=== PATIENT | male | born 1950 | race Caucasian/White ===

== ENCOUNTER 2017-02-02 04:21 | Emergency (ER) | payer MEDICARE, BC, OTHER ==
[~2017-02-02] VITALS: Ht 177.8 cm; Wt 84.8 kg
[~2017-02-02 04:21] MED LIST: ASPI81TA85 PO; CARV25TA PO; CELL250C PO; FOLI1TAB2 PO; MAGN500T6 PO; MERO1INJ IV; MOME50SP; NITR100C2 PO; OMEP20CA3 PO; POTA50TAB PO; PRED5TA PO; PROG1CAP2 PO; SYNT125T PO
[2017-02-02 05:37] LABS: BASO % 0.2 % (0.0-1.0); EOS # 0.1 K/mm3 (0.0-0.50); LARGE UNSTAINED CELL # 0.1 K/mm3 (0.0-0.4); LARGE UNSTAINED CELL % 1.8 % (0.0-4.0); LYMPH # 0.9 K/mm3 (1.5-4.5); LYMPH % 12.3 % (24.0-44.0); MEAN CORPUSCULAR HEMOGLOBIN 29.4 pg (27.0-33.0); MEAN CORPUSCULAR HGB CONC 34.9 g/dl (32.0-36.5); MEAN CORPUSCULAR VOLUME 84.3 fl (80.0-96.0); MONO # 0.7 K/mm3 (0.0-0.8); MONO % 9.6 % (0.0-5.0); NEUTROPHILS # 5.5 K/mm3 (1.8-7.7); NEUTROPHILS % 75.1 % (36.0-66.0); PLATELET COUNT, AUTOMATED 109 k/mm3 (150-450); WHITE BLOOD COUNT 7.3 K/mm3 (4.0-10.0)
[2017-02-02 05:55] LABS: ANION GAP 9 MEQ/L (8-16); BLOOD UREA NITROGEN 23 MG/DL (7-18); CALCIUM LEVEL 8.6 MG/DL (8.8-10.2); CARBON DIOXIDE LEVEL 25 MEQ/L (21-32); CHLORIDE LEVEL 106 MEQ/L (98-107); CREATININE FOR GFR 1.13 MG/DL (0.70-1.30); GLOMERULAR FILTRATION RATE > 60.0 (>49); GLUCOSE, FASTING 160 MG/DL (80-110); POTASSIUM SERUM 3.8 MEQ/L (3.5-5.1); SODIUM LEVEL 140 MEQ/L (136-145)
[2017-02-02] MEDS ORDERED: TESS100C PO (06:03)
[2017-02-02] MEDS ORDERED: FLON1SPR (06:03)
[2017-02-02 06:12] VITALS: BP 138/72
[2017-02-02] MEDS ORDERED: BENZONATATE 100 MG CAP PO ONE (06:15)
== END 2017-02-02 06:13 | disposition home or self-care (01) ==
LOC: M ED 05:47
DX: J06.9 Acute upper respiratory infection, unspecified (principal)

== ENCOUNTER → 2017-02-04 | Outpatient (REF) | payer MEDICARE, BC, OTHER ==
[~2017-02-04] MED LIST changes: +FLON1SPR; +TESS100C PO
[2017-02-04 14:36] LABS: FREE T4 1.1 NG/DL (0.76-1.46)
== END ==
LOC: M LAB REF 12:56
PROVIDERS: ATTEND Internal Medicine Nephrology
DX: E78.2 Mixed hyperlipidemia (principal); E03.9 Hypothyroidism, unspecified; Z94.0 Kidney transplant status; Z48.22 Encounter for aftercare following kidney transplant; Z79.899 Other long term (current) drug therapy

== ENCOUNTER → 2017-02-18 | Outpatient (CLI) | payer MEDICARE, BC, OTHER ==
[~2017-02-18] MED LIST changes: +AMLO5TAB2 PO; +FINA5TAB2 PO; +VIAG100T; +ZOFR4TAB3 PO
== END ==
LOC: M SMT 10:29
PROVIDERS: ATTEND Urology
DX: Z12.5 Encounter for screening for malignant neoplasm of prostate (principal)
CPT/HCPCS: 36415; G0103; G0463

== ENCOUNTER 2017-03-12 18:26 | Emergency (ER) | payer MEDICARE, BC, OTHER ==
[~2017-03-12] VITALS: Ht 177.8 cm; Wt 83.9 kg
[~2017-03-12 18:26] MED LIST changes: -AMLO5TAB2 PO; -FINA5TAB2 PO; -VIAG100T; -ZOFR4TAB3 PO
[2017-03-12] MEDS ORDERED: FINA5TAB2 PO (18:40)
[2017-03-12] MEDS ORDERED: VIAG100T (18:40)
[2017-03-12] MEDS ORDERED: AMLO5TAB2 PO (18:40)
[2017-03-12] MEDS ORDERED: ONDANSETRON 4MG/2ML VIAL (J2405) IV ONE (19:30)
[2017-03-12] MEDS ORDERED: NS 1,000 ML IV ONE (19:30)
[2017-03-12 20:07] LABS: BASO % 0.2 % (0.0-1.0); EOS % 0.6 % (0.0-3.0); LARGE UNSTAINED CELL # 0.1 K/mm3 (0.0-0.4); LARGE UNSTAINED CELL % 1.6 % (0.0-4.0); LYMPH # 0.5 K/mm3 (1.5-4.5); LYMPH % 7.1 % (24.0-44.0); MEAN CORPUSCULAR HEMOGLOBIN 29.1 pg (27.0-33.0); MEAN CORPUSCULAR HGB CONC 34.7 g/dl (32.0-36.5); MEAN CORPUSCULAR VOLUME 83.8 fl (80.0-96.0); MONO # 0.6 K/mm3 (0.0-0.8); MONO % 10.7 % (0.0-5.0); NEUTROPHILS # 4.7 K/mm3 (1.8-7.7); NEUTROPHILS % 79.9 % (36.0-66.0); PLATELET COUNT, AUTOMATED 120 k/mm3 (150-450); WHITE BLOOD COUNT 5.9 K/mm3 (4.0-10.0)
[2017-03-12 20:31] LABS: ALBUMIN 3.8 GM/DL (3.2-5.2); ALBUMIN/GLOBULIN RATIO 1.36 (1.00-1.93); BILIRUBIN,DIRECT 0.3 MG/DL (0.0-0.2); BILIRUBIN,TOTAL 1.4 MG/DL (0.2-1.0); CALCIUM LEVEL 8.4 MG/DL (8.8-10.2); CREATININE FOR GFR 1.29 MG/DL (0.70-1.30); GLOMERULAR FILTRATION RATE 59.3 (>49); TOTAL PROTEIN 6.6 GM/DL (6.4-8.2)
[2017-03-12] MEDS ORDERED: ZOFR4TAB3 PO (20:55)
[2017-03-12 21:07] VITALS: BP 150/86
== END 2017-03-12 21:08 | disposition home or self-care (01) ==
LOC: M ED 19:37
DX: A08.4 Viral intestinal infection, unspecified (principal); E86.0 Dehydration; N40.0 Benign prostatic hyperplasia without lower urinary tract symptoms; I71.4 Abdominal aortic aneurysm, without rupture; I12.9 Hypertensive chronic kidney disease with stage 1 through stage 4 chronic kidney disease, or unspecified chronic kidney disease; Q44.6 Cystic disease of liver; Z94.0 Kidney transplant status; R11.2 Nausea with vomiting, unspecified; Z88.0 Allergy status to penicillin; Z88.1 Allergy status to other antibiotic agents; Z79.899 Other long term (current) drug therapy
CPT/HCPCS: 36415; 80048; 80076; 81001; 83605; 83690; 85025; 87040; 87086; 96374; 99283; J2405

== ENCOUNTER → 2017-04-05 | Outpatient (REF) | payer MEDICARE, OTHER ==
[~2017-04-05] MED LIST changes: +AMLO5TAB2 PO; +FINA5TAB2 PO; +VIAG100T; +ZOFR4TAB3 PO
== END ==
LOC: M LAB REF 13:12
PROVIDERS: ATTEND Internal Medicine Nephrology
DX: Z94.0 Kidney transplant status (principal)

== ENCOUNTER → 2017-04-19 | Outpatient (REF) | payer MEDICARE, OTHER | LOC: M LAB REF 12:58 | PROVIDERS: ATTEND Internal Medicine Nephrology | DX: N39.0 Urinary tract infection, site not specified (principal) ==

== ENCOUNTER → 2017-05-27 | Outpatient (REF) | payer MEDICARE, OTHER ==
[~2017-05-27] MED LIST changes: -FOLI1TAB2 PO; +FOLI1TAB4 PO; +GLIP1TAB49 PO
== END ==
LOC: M LAB REF 13:03
PROVIDERS: ATTEND Internal Medicine Nephrology
DX: Z94.0 Kidney transplant status (principal)

== ENCOUNTER 2017-06-10 10:52 | Outpatient (CLI) | payer MEDICARE, BC, OTHER ==
[~2017-06-10] VITALS: Ht 176.5 cm; Wt 83.0 kg
[2017-06-10] MEDS ORDERED: NS 1,000 ML IV ONE (11:00)
[2017-06-10] MEDS ORDERED: LIDOCAINE 2% INJ 100 MG/5 ML SDV (FOR ANES.) As Ordered ONE (12:10)
[2017-06-10] MEDS ORDERED: PROPOFOL 200 MG/20 ML VIAL As Ordered ONE (12:10)
--- NOTE | 2017-06-10 12:35 | ROOR ---
Patient Name: Inderjit Albright Procedure Date: 06/10/2017 12:11 PM Date of : 1950 Age: 67 Room: [facility] Gender: Male Note Status: Finalized Procedure: Total Colonoscopy to Cecum Indications: Screening for colorectal malignant neoplasm Providers: Donta Lopez MD Referring MD: Nathanael Lockhart MD Requesting Provider: Medicines: Monitored Anesthesia Care Complications: No immediate complications. Procedure: Pre-Anesthesia Assessment: - The heart rate, respiratory rate, oxygen saturations, blood pressure, adequacy of pulmonary ventilation, and response to care were monitored throughout the procedure. The Colonoscope was introduced through the anus and advanced to the cecum, identified by appendiceal orifice and ileocecal valve. The colonoscopy was performed without difficulty. The patient tolerated the procedure well. The quality of the bowel preparation was good. Findings: The perianal and digital rectal examinations were normal. Non-bleeding internal hemorrhoids were found during retroflexion. The hemorrhoids were small and Grade I (internal hemorrhoids that do not prolapse). Scattered small-mouthed diverticula were found in the recto-sigmoid colon, sigmoid colon and descending colon. The exam was otherwise without abnormality on direct and retroflexion views. Impression: - Non-bleeding internal hemorrhoids. - Diverticulosis in the recto-sigmoid colon, in the sigmoid colon and in the descending colon. - The examination was otherwise normal on direct and retroflexion views. - No specimens collected. - The exam was otherwise normal to the cecum. Recommendation: - Patient has a contact number available for emergencies. The signs and symptoms of potential delayed complications were discussed with the patient. Return to normal activities tomorrow. Written discharge instructions were provided to the patient. - Discharge patient to home. - Continue present medications. - Repeat colonoscopy in 10 years for screening purposes. - Return to referring physician. - The findings and recommendations were discussed with the patient's family. Donta Lopez MD Donta Lopez MD 06/10/2017 12:34:45 PM This report has been signed electronically. Number of Addenda: 0 Note Initiated On: 06/10/2017 12:11 PM Estimated Blood Loss: Estimated blood loss: none.
[2017-06-10 12:59] VITALS: BP 128/78
== END 2017-06-10 13:02 | disposition home or self-care (01) ==
LOC: M OPP 10:52
PROVIDERS: ATTEND Internal Medicine Gastroenterology
DX: Z12.11 Encounter for screening for malignant neoplasm of colon (principal); K64.0 First degree hemorrhoids; K57.30 Diverticulosis of large intestine without perforation or abscess without bleeding; I10 Essential (primary) hypertension; E11.9 Type 2 diabetes mellitus without complications; E03.9 Hypothyroidism, unspecified; D64.9 Anemia, unspecified; K21.9 Gastro-esophageal reflux disease without esophagitis; Q61.9 Cystic kidney disease, unspecified; Z79.899 Other long term (current) drug therapy; Z79.82 Long term (current) use of aspirin; Z88.0 Allergy status to penicillin; Z88.1 Allergy status to other antibiotic agents; Z90.5 Acquired absence of kidney

== ENCOUNTER → 2017-07-05 | Outpatient (REF) | payer MEDICARE, BC, OTHER ==
[2017-07-05 14:38] LABS: FREE T4 1.08 NG/DL (0.76-1.46)
== END ==
LOC: M LAB REF 12:54
PROVIDERS: ATTEND Internal Medicine Nephrology
DX: R50.9 Fever, unspecified (principal); E03.9 Hypothyroidism, unspecified; Z94.0 Kidney transplant status

== ENCOUNTER → 2017-07-15 | Outpatient (REF) | payer MEDICARE, BC, OTHER | LOC: M LAB REF 17:07 | PROVIDERS: ATTEND Internal Medicine Nephrology | DX: N39.0 Urinary tract infection, site not specified (principal) ==

== ENCOUNTER → 2017-08-05 | Outpatient (CLI) | payer MEDICARE, BC, OTHER ==
[2017-08-05 11:02] LABS: BASO % 0.3 % (0.0-1.0); EOS # 0.1 10^3/uL (0.0-0.50); EOS % 2.1 % (0.0-3.0); IMMATURE GRANULOCYTE % 0.3 % (0-0); LYMPH # 1.5 10^3/uL (1.5-4.5); LYMPH % 23.8 % (24.0-44.0); MEAN CORPUSCULAR HEMOGLOBIN 28.6 pg (27.0-33.0); MEAN CORPUSCULAR HGB CONC 33.5 g/dl (32.0-36.5); MEAN CORPUSCULAR VOLUME 85.3 fl (80.0-96.0); MONO # 0.5 10^3/uL (0.0-0.8); MONO % 8.6 % (0.0-5.0); NEUTROPHILS # 4.1 10^3/uL (1.8-7.7); NEUTROPHILS % 64.9 % (36.0-66.0); PLATELET COUNT, AUTOMATED 144 10^3/uL (150-450); WHITE BLOOD COUNT 6.3 10^3/uL (4.0-10.0)
[2017-08-05 11:08] LABS: ALBUMIN 3.8 GM/DL (3.2-5.2); ANION GAP 7 MEQ/L (8-16); BLOOD UREA NITROGEN 26 MG/DL (7-18); CALCIUM LEVEL 8.7 MG/DL (8.8-10.2); CARBON DIOXIDE LEVEL 29 MEQ/L (21-32); CHLORIDE LEVEL 105 MEQ/L (98-107); CREATININE FOR GFR 1.15 MG/DL (0.70-1.30); GLOMERULAR FILTRATION RATE > 60.0 (>49); GLUCOSE, FASTING 115 MG/DL (80-110); PHOSPHORUS LEVEL 2.3 MG/DL (2.5-4.9); POTASSIUM SERUM 3.9 MEQ/L (3.5-5.1); SODIUM LEVEL 141 MEQ/L (136-145)
[2017-08-05 11:12] LABS: ADD MANUAL DIFFER NO; DIFF SLIDE NUMBER 160
== END ==
LOC: M LAB 09:50
PROVIDERS: ATTEND Internal Medicine Nephrology
DX: Z94.0 Kidney transplant status (principal)

== ENCOUNTER → 2018-02-07 | Outpatient (CLI) | payer MEDICARE, BC, OTHER ==
[2018-02-07 14:51] LABS: PROSTATIC SPECIFIC AG MONITOR 1.84 NG/ML (< 4.0)
== END ==
LOC: M LAB 14:05
DX: N40.0 Benign prostatic hyperplasia without lower urinary tract symptoms (principal); R97.20 Elevated prostate specific antigen [PSA]
CPT/HCPCS: 84153

== ENCOUNTER → 2018-02-14 | Outpatient (REF) | payer MEDICARE, OTHER ==
[2018-02-14 14:26] LABS: CHOLESTEROL LEVEL 176 MG/DL (<200); CHOLESTEROL RISK RATIO 4.631 (<5); FREE T4 1.13 NG/DL (0.76-1.46); HDL CHOLESTEROL 38 MG/DL (>40); LDL CHOLESTEROL 95.6 MG/DL (<100); NON-HDL-C 138 MG/DL; TRIGLYCERIDES LEVEL 212 MG/DL (<150)
[2018-02-16 10:08] LABS: FK 506 (TACROLIMUS) LABCORP 5.6 ng/mL (2.0-20.0)
== END ==
LOC: M LAB REF 13:31
DX: Z94.0 Kidney transplant status (principal); Z48.22 Encounter for aftercare following kidney transplant; E03.9 Hypothyroidism, unspecified; E78.2 Mixed hyperlipidemia
CPT/HCPCS: 84443

== ENCOUNTER → 2018-03-18 | Outpatient (REF) | payer MEDICARE, OTHER ==
[2018-03-20 08:11] LABS: FK 506 (TACROLIMUS) LABCORP 3.1 ng/mL (2.0-20.0)
== END ==
LOC: M LAB REF 13:24
DX: Z94.0 Kidney transplant status (principal)
CPT/HCPCS: 80197

== ENCOUNTER 2018-04-02 20:19 | Emergency (ER) | payer MEDICARE, OTHER ==
[2018-04-02] MEDS: ONDANSETRON 4MG/2ML VIAL (J2405) IV (20:45)
[2018-04-02] MEDS: NS 1,000 ML IV (20:45)
[2018-04-02] MEDS: MORPHINE 4 MG/ML 1ML VIAL/SYRINGE (J2270) IV ×2 (20:45→22:32)
[2018-04-02 21:09] LABS: HEMATOCRIT 43.1 % (42.0-52.0); HEMOGLOBIN 15.1 g/dl (13.5-17.5); MEAN CORPUSCULAR HEMOGLOBIN 28.7 pg (27.0-33.0); MEAN CORPUSCULAR VOLUME 81.8 fl (80.0-96.0); PLATELET COUNT, AUTOMATED 144 10^3/uL (150-450); RED BLOOD COUNT 5.27 10^6/uL (4.30-6.10); RED CELL DISTRIBUTION WIDTH 13.7 % (11.5-14.5); WHITE BLOOD COUNT 8.7 10^3/uL (4.0-10.0)
[2018-04-02 21:26] LABS: APPEARANCE, URINE CLEAR (CLEAR); BACTERIA, URINE AUTO NEGATIVE (NEGATIVE); BILIRUBIN, URINE AUTO NEGATIVE (NEGATIVE); BLOOD, URINE BLOOD NEGATIVE (NEGATIVE); COLOR, URINE STRAW (YELLOW); GLUCOSE, URINE (UA) AUTO 3+ mg/dL (NEGATIVE); INR 0.97; KETONE, URINE AUTO NEGATIVE (NEGATIVE); LEUKOCYTE ESTERASE, URINE AUTO NEGATIVE (NEGATIVE); NITRITE, URINE AUTO NEGATIVE (NEGATIVE); PROTEIN, URINE AUTO NEGATIVE (NEGATIVE); RBC, URINE AUTO 0 /HPF (0-3); SPECIFIC GRAVITY URINE AUTO 1.007 (1.002-1.035); SQUAMOUS EPITHELIAL CELL UR AU 0 /HPF (0-6); UROBILINOGEN, URINE AUTO 0.2 mg/dL (0.0-2.0); WBC, URINE AUTO 0 /HPF (0-3)
[2018-04-02 21:29] LABS: ANION GAP 7 MEQ/L (8-16); BLOOD UREA NITROGEN 26 MG/DL (7-18); CALCIUM LEVEL 8.9 MG/DL (8.8-10.2); CARBON DIOXIDE LEVEL 24 MEQ/L (21-32); CHLORIDE LEVEL 106 MEQ/L (98-107); CREATININE FOR GFR 1.17 MG/DL (0.70-1.30); GLOMERULAR FILTRATION RATE > 60.0 (>49); GLUCOSE, FASTING 191 MG/DL (70-100); POTASSIUM SERUM 3.8 MEQ/L (3.5-5.1); SODIUM LEVEL 137 MEQ/L (136-145)
== END 2018-04-02 23:10 | disposition short-term general hospital (02) ==
LOC: M ED 20:19
DX: S32.391A Other fracture of right ilium, initial encounter for closed fracture (principal); V18.0XXA Pedal cycle driver injured in noncollision transport accident in nontraffic accident, initial encounter; Y92.093 Driveway of other non-institutional residence as the place of occurrence of the external cause; I67.1 Cerebral aneurysm, nonruptured; I10 Essential (primary) hypertension; Z88.1 Allergy status to other antibiotic agents; Z88.0 Allergy status to penicillin; Z79.899 Other long term (current) drug therapy; Z79.82 Long term (current) use of aspirin
CPT/HCPCS: J2270

== ENCOUNTER → 2018-04-15 | Outpatient (REF) ==
[2018-04-15 11:27] LABS: HEMATOCRIT 38.5 % (42.0-52.0); HEMOGLOBIN 12.7 g/dl (13.5-17.5); MEAN CORPUSCULAR HEMOGLOBIN 28.2 pg (27.0-33.0); MEAN CORPUSCULAR VOLUME 85.6 fl (80.0-96.0); PLATELET COUNT, AUTOMATED 222 10^3/uL (150-450); RED CELL DISTRIBUTION WIDTH 14.6 % (11.5-14.5); WHITE BLOOD COUNT 7.4 10^3/uL (4.0-10.0)
[2018-04-15 11:50] LABS: BLOOD UREA NITROGEN 25 MG/DL (7-18); CREATININE FOR GFR 1.26 MG/DL (0.70-1.30); GLUCOSE, FASTING 195 MG/DL (70-100)
[2018-04-15 11:51] LABS: ANION GAP 12 MEQ/L (8-16); CALCIUM LEVEL 8.9 MG/DL (8.8-10.2); CARBON DIOXIDE LEVEL 29 MEQ/L (21-32); CHLORIDE LEVEL 99 MEQ/L (98-107); GLOMERULAR FILTRATION RATE > 60.0 (>49); MAGNESIUM LEVEL 1.7 MG/DL (1.8-2.4); POTASSIUM SERUM 3.8 MEQ/L (3.5-5.1); SODIUM LEVEL 140 MEQ/L (136-145)
== END ==
DX: Z94.0 Kidney transplant status (principal)

== ENCOUNTER → 2018-04-22 | Outpatient (REF) ==
[2018-04-22 12:02] LABS: HEMATOCRIT 38.2 % (42.0-52.0); HEMOGLOBIN 12.8 g/dl (13.5-17.5); MEAN CORPUSCULAR HEMOGLOBIN 28.4 pg (27.0-33.0); MEAN CORPUSCULAR HGB CONC 33.5 g/dl (32.0-36.5); MEAN CORPUSCULAR VOLUME 84.7 fl (80.0-96.0); PLATELET COUNT, AUTOMATED 196 10^3/uL (150-450); RED BLOOD COUNT 4.51 10^6/uL (4.30-6.10); RED CELL DISTRIBUTION WIDTH 14.6 % (11.5-14.5); WHITE BLOOD COUNT 6.4 10^3/uL (4.0-10.0)
[2018-04-22 12:14] LABS: ANION GAP 9 MEQ/L (8-16); BLOOD UREA NITROGEN 26 MG/DL (7-18); CALCIUM LEVEL 8.3 MG/DL (8.8-10.2); CARBON DIOXIDE LEVEL 27 MEQ/L (21-32); CHLORIDE LEVEL 105 MEQ/L (98-107); CREATININE FOR GFR 1.03 MG/DL (0.70-1.30); GLOMERULAR FILTRATION RATE > 60.0 (>49); GLUCOSE, FASTING 113 MG/DL (70-100); MAGNESIUM LEVEL 2.1 MG/DL (1.8-2.4); SODIUM LEVEL 141 MEQ/L (136-145)
== END ==
DX: Z94.0 Kidney transplant status (principal)

== ENCOUNTER → 2018-04-23 | Outpatient (REF) | payer MEDICARE, OTHER ==
[2018-04-23 18:56] LABS: APPEARANCE, URINE HAZY (CLEAR); BACTERIA, URINE AUTO 1+ (NEGATIVE); BILIRUBIN, URINE AUTO NEGATIVE (NEGATIVE); BLOOD, URINE BLOOD 1+ (NEGATIVE); COLOR, URINE YELLOW (YELLOW); GLUCOSE, URINE (UA) AUTO NEGATIVE (NEGATIVE); KETONE, URINE AUTO NEGATIVE (NEGATIVE); LEUKOCYTE ESTERASE, URINE AUTO 3+ (NEGATIVE); NITRITE, URINE AUTO NEGATIVE (NEGATIVE); PROTEIN, URINE AUTO NEGATIVE (NEGATIVE); RBC, URINE AUTO 13 /HPF (0-3); SQUAMOUS EPITHELIAL CELL UR AU 0 /HPF (0-6); UROBILINOGEN, URINE AUTO 0.2 mg/dL (0.0-2.0); WBC, URINE AUTO 90 /HPF (0-3)
== END ==
LOC: M LAB REF 17:13
DX: N39.0 Urinary tract infection, site not specified (principal)
CPT/HCPCS: 81001

== ENCOUNTER → 2018-05-22 | Outpatient (REF) | payer MEDICARE, OTHER ==
[2018-05-22 14:44] LABS: CHOLESTEROL LEVEL 191 MG/DL (<200); CHOLESTEROL RISK RATIO 4.897 (<5); HDL CHOLESTEROL 39 MG/DL (>40); LDL CHOLESTEROL 91.6 MG/DL (<100); NON-HDL-C 152 MG/DL; TRIGLYCERIDES LEVEL 302 MG/DL (<150)
[2018-05-27 00:08] LABS: FK 506 (TACROLIMUS) LABCORP 6.5 ng/mL (2.0-20.0)
== END ==
LOC: M LAB REF 13:32
DX: E78.2 Mixed hyperlipidemia (principal); Z94.0 Kidney transplant status; Z48.22 Encounter for aftercare following kidney transplant; E03.9 Hypothyroidism, unspecified
CPT/HCPCS: 84443

== ENCOUNTER → 2018-06-23 | Outpatient (REF) | payer MEDICARE, OTHER ==
[2018-06-25 14:18] LABS: FK 506 (TACROLIMUS) LABCORP 9.3 ng/mL (2.0-20.0)
== END ==
LOC: M LAB REF 13:42
DX: Z94.0 Kidney transplant status (principal)
CPT/HCPCS: 80197

== ENCOUNTER → 2018-07-24 | Outpatient (REF) | payer MEDICARE, OTHER ==
[2018-07-26 00:06] LABS: FK 506 (TACROLIMUS) LABCORP 4.8 ng/mL (2.0-20.0)
== END ==
LOC: M LAB REF 13:50
DX: Z94.0 Kidney transplant status (principal)
CPT/HCPCS: 80197

== ENCOUNTER → 2018-09-10 | Outpatient (REF) | payer MEDICARE, OTHER ==
[2018-09-12 14:13] LABS: FK 506 (TACROLIMUS) LABCORP 8.7 ng/mL (2.0-20.0)
== END ==
LOC: M LAB REF 13:05
DX: Z94.0 Kidney transplant status (principal)
CPT/HCPCS: 80197

== ENCOUNTER → 2019-02-19 | Outpatient (REF) | payer MEDICARE, OTHER ==
[~2019-02-19] MED LIST changes: -AMLO5TAB2 PO; +AMLO5TAB6 PO; +FOLI1TAB11 PO; -FOLI1TAB4 PO; -GLIP1TAB49 PO; +GLIP5TAB20 PO; +ZITHTAB PO; +ZOFR4TAB14 PO; -ZOFR4TAB3 PO
== END ==
LOC: M LAB REF 13:23
PROVIDERS: ATTEND Internal Medicine Nephrology
DX: Z94.0 Kidney transplant status (principal)

== ENCOUNTER → 2019-03-06 | Outpatient (CLI) | payer MEDICARE, OTHER | LOC: M SMT 13:44 | PROVIDERS: ATTEND Nurse Practitioner Women's Health | DX: Z12.5 Encounter for screening for malignant neoplasm of prostate (principal) | CPT/HCPCS: 36415; G0103 ==

== ENCOUNTER → 2019-03-09 | Outpatient (REF) | payer MEDICARE, OTHER | LOC: M SMT 18:11 | PROVIDERS: ATTEND Urology | DX: N40.0 Benign prostatic hyperplasia without lower urinary tract symptoms (principal) | CPT/HCPCS: 87086; G0463 ==

== ENCOUNTER → 2019-04-16 | Outpatient (REF) | payer MEDICARE, OTHER ==
[2019-04-16 13:41] LABS: CHOLESTEROL RISK RATIO 4.795 (<5); FREE T4 1.2 NG/DL (0.76-1.46); THYROID STIMULATING HORMONE 0.789 uIU/ML (0.358-3.740)
== END ==
LOC: M LAB REF 13:05
PROVIDERS: ATTEND Internal Medicine Nephrology
DX: E03.9 Hypothyroidism, unspecified (principal); E78.2 Mixed hyperlipidemia; Z94.0 Kidney transplant status; Z48.22 Encounter for aftercare following kidney transplant

== ENCOUNTER → 2019-04-16 | Outpatient (CLI) | payer MEDICARE, OTHER ==
[2019-04-17 14:56] LABS: PSA % FREE 21.2 % (.); PSA FREE 1.23 ng/mL; PSA TOTAL 5.8 ng/mL (0.0-4.0)
== END ==
LOC: M SMT 10:53
PROVIDERS: ATTEND Urology
DX: R97.20 Elevated prostate specific antigen [PSA] (principal); E03.9 Hypothyroidism, unspecified; E78.2 Mixed hyperlipidemia; Z94.0 Kidney transplant status; Z48.22 Encounter for aftercare following kidney transplant

== ENCOUNTER → 2019-05-18 | Outpatient (REF) | payer MEDICARE, OTHER ==
[~2019-05-18] MED LIST changes: -OMEP20CA3 PO; +OMEP20CA4 PO
== END ==
LOC: M LAB REF 13:13
PROVIDERS: ATTEND Internal Medicine Nephrology
DX: Z94.0 Kidney transplant status (principal)

== ENCOUNTER → 2019-06-02 | Outpatient (CLI) | payer MEDICARE, BC, OTHER ==
--- NOTE | 2019-06-02 14:28 | REP ---
TRANSRECTAL PROSTATE ULTRASOUND WITH ULTRASOUND GUIDANCE FOR PROSTATE BIOPSY: Real-time sonographic evaluation of the prostate performed utilizing transrectal probe. The size of the gland is 4.4 x 3.4 x 5.1 cm for a total volume of 39.7 mL. Echotexture is heterogeneous with scattered cysts in calcifications. Seminal vesicles are prominent in size. Ultrasound guidance was provided for Dr. Nolasco who performed ultrasound guided biopsy of the prostate. Electronically Signed by Kahlil Villa MD 06/03/2019 10:38 A
== END ==
LOC: M SMT PRO 10:38
PROVIDERS: ATTEND Urology
DX: C61 Malignant neoplasm of prostate (principal)
CPT/HCPCS: 55700; 76872; 76942; G0416

== ENCOUNTER → 2019-07-02 | Outpatient (CLI) | payer MEDICARE, BC, OTHER ==
[~2019-07-02] MED LIST changes: +METF500T13 PO
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
== END ==
LOC: M ONCR 08:49
PROVIDERS: ATTEND Radiology Radiation Oncology
DX: C61 Malignant neoplasm of prostate (principal)

== ENCOUNTER → 2019-07-14 | Outpatient (CLI) | payer MEDICARE, BC, OTHER ==
[~2019-07-14] MED LIST changes: +OMEP1CAP73 PO; -OMEP20CA4 PO
--- NOTE | 2019-07-14 18:46 | REP ---
TRANSRECTAL ULTRASOUND GUIDANCE FOR FIDUCIARY MARKER PLACEMENT: Transrectal ultrasound guidance was provided for Dr. Nolasco who performed Fiduciary marker placement. Three fiduciary markers are placed, 1 at the right base, 1 at the left base and 1 at the midline at the apex. Electronically Signed by Kahlil Villa MD 07/16/2019 04:33 P
== END ==
LOC: M SMT 08:11
PROVIDERS: ATTEND Urology
DX: C61 Malignant neoplasm of prostate (principal)
CPT/HCPCS: 55876; 76872; 76942; 96402; J9217

== ENCOUNTER → 2019-08-27 | Outpatient (RCR) | payer MEDICARE, BC, OTHER ==
--- NOTE | 2019-07-29 06:06 | RADONC ---
RADIATION ONCOLOGY SIMULATION NOTE DATE: 07/28/2019 CHART #: [id number] Mr. Albright was taken to the CT scan for CT simulation of his prostate field. CT was accomplished without difficulty or discomfort. Radiation treatment planning is underway and radiation treatments will begin subsequently. An immobilization device was created. It was created without difficulty or discomfort. It will be used throughout the course of treatment. I was physically present throughout the course of CT simulation.
--- NOTE | 2019-08-04 12:06 | RADONC ---
RADIATION ONCOLOGY PROGRESS NOTE DATE: 08/03/2019 CHART NUMBER: [id number] PROGRESS NOTE: Mr. Albright underwent his first fraction of radiation today for 180 cGy to his prostate. It was tolerated without difficulty or discomfort. REVIEW OF SYSTEMS: The patient's review of systems is noncontributory. Denies nausea, vomiting, fevers, chills, night sweats, diplopia, headaches, anxiety or depression, anorexia, weight loss, visual disturbances, chest pain, urinary or bowel difficulties, bone pain, or neurological problems. PHYSICAL EXAMINATION: Clearly the patient's physical exam showed no evidence of radiation change present since this was his first fraction of treatment. The remainder of his physical exam remained unchanged as well. Mr. Albright tolerated his first fraction quite well and radiation will continue as scheduled.
--- NOTE | 2019-08-10 15:47 | RADONC ---
RADIATION ONCOLOGY PROGRESS NOTE DATE: 08/10/2019 CHART NUMBER: [id number] PROGRESS NOTE: Mr. Albright is presently at a dose of 1080 cGy to his prostate and is tolerating treatments quite well at this point with no complaints related to his radiation therapy. He is having no urinary or bowel difficulties and no bone pain. REVIEW OF SYSTEMS: The patient's review of systems is noncontributory. Denies nausea, vomiting, fevers, chills, night sweats, diplopia, headaches, anxiety or depression, anorexia, weight loss, visual disturbances, chest pain, urinary or bowel difficulties, bone pain, or neurological problems. PHYSICAL EXAMINATION: The patient's skin is in good condition with no evidence of radiation change present. There is no moist or dry desquamation. The remainder of his physical exam remains unchanged. Mr. Albright is tolerating treatments quite well and radiation will continue as scheduled.
--- NOTE | 2019-08-18 09:17 | RADONC ---
RADIATION ONCOLOGY PROGRESS NOTE DATE: 08/17/2019 CHART NUMBER: [id number] Mr. Albright with a diagnosis of prostate cancer ([id number]), is currently receiving local regional radiotherapy. His current dose is 1980 cGy of an anticipated 7920 cGy. He is tolerating his radiotherapy reasonably well and denies any significant problems related to his disease or to his treatment. REVIEW OF SYSTEMS: He specifically denies any nausea, vomiting, coughing, sputum production or hemoptysis, dysuria, hematuria or blood per rectum. His energy level is such that he is able to maintain most day-to-day activities without any alteration of his lifestyle. Skin irritation is denied. PHYSICAL EXAMINATION: Skin within the irradiated volume shows neither erythema nor desquamation. Lymphatics: No palpable peripheral lymphadenopathy appreciated. Lungs are clear. Abdomen: Negative. IMPRESSION: Tolerating therapy well. PLAN: Treatments to continue. MTDD
--- NOTE | 2019-08-25 07:14 | RADONC ---
RADIATION ONCOLOGY PROGRESS NOTE DATE: 08/24/2019 CHART #: [id number] Mr. Albright is presently at a dose of 2880 cGy to his prostate and is tolerating treatments quite well at this point with no significant difficulties related to his radiation therapy. He continues to use a urinary catheter without much discomfort. REVIEW OF SYSTEMS: The patient's review of systems is positive for continued use of his urinary catheter but is otherwise noncontributory. Denies nausea, vomiting, fevers, chills, night sweats, diplopia, headaches, anxiety or depression, anorexia, weight loss, visual disturbances, chest pain, urinary or bowel difficulties, bone pain, or neurological problems. PHYSICAL EXAMINATION: The patient's skin is in good condition with no evidence of moist or dry desquamation. The remainder of his physical exam remains unchanged. Mr. Albright is tolerating treatments quite well and radiation will continue as scheduled. MTDD
[~2019-08-27] MED LIST changes: -OMEP1CAP73 PO; +OMEP20CA4 PO
== END ==
LOC: M ONCR 07-28 10:17
PROVIDERS: ATTEND Radiology Radiation Oncology
DX: C61 Malignant neoplasm of prostate (principal)

== ENCOUNTER → 2019-09-01 | Outpatient (REF) | payer MEDICARE, OTHER | LOC: M LAB REF 13:36 | PROVIDERS: ATTEND Internal Medicine Nephrology | DX: Z94.0 Kidney transplant status (principal) ==

== ENCOUNTER 2019-09-23 14:15 | Outpatient (RCR) | payer MEDICARE, BC, OTHER ==
--- NOTE | 2019-08-31 15:36 | RADONC ---
RADIATION ONCOLOGY PROGRESS NOTE DATE: 08/31/2019 CLINICAL HISTORY [id number] PROGRESS NOTE: Mr. Albright with a diagnosis of adenocarcinoma of the prostate is currently receiving local regional radiotherapy and he has achieved a dose of 3780 cGy thus far of a proposed 7920 cGy. He is tolerating his radiotherapy reasonably well although he has to self-catheterize approximately 10 times per day secondary to urinary obstruction which is presumably secondary to an enlarged prostate. He is tender from the self-catheterizations but effectively eliminating most of the urine from his bladder. His energy level is such that he is able to maintain many day-to-day activities without any significant alteration of his lifestyle. He has no irritation of his skin. The remainder of the review of systems is negative. Examination findings: The skin within the irradiated volume shows neither erythema nor desquamation. Lymphatics no palpable peripheral lymphadenopathy is appreciated. Lungs are clear. Heart regular without murmurs. Abdomen without evidence of hepatomegaly, masses or deep abdominal tenderness. Extremities without cyanosis, clubbing or edema. The remainder of the examination is unchanged. IMPRESSION: Tolerating therapy reasonably well but continues with daily self-catheterizations multiple times. PLAN: Treatments to continue.
--- NOTE | 2019-09-07 16:14 | RADONC ---
RADIATION ONCOLOGY PROGRESS NOTE DATE: 09/07/2019 CHART NUMBER: [id number] PROGRESS NOTE: Mr. Albright is presently at a dose of 4680 cGy to his prostate and seminal vesicles and overall is tolerating his treatments quite well with no significant difficulties related to his radiation therapy. He reports that he continues to catheterize himself as he has done for the past 14 years without difficulty or too much discomfort. He has no bleeding or other problems during these catheterizations. REVIEW OF SYSTEMS: The patient's review of systems is noncontributory. Denies nausea, vomiting, fevers, chills, night sweats, diplopia, headaches, anxiety or depression, anorexia, weight loss, visual disturbances, chest pain, urinary or bowel difficulties, bone pain, or neurological problems. PHYSICAL EXAMINATION: The patient's skin is in good condition with no evidence of moist or dry desquamation. The remainder of his physical exam remains unchanged. Mr. Albright is tolerating treatments quite well and radiation will continue as scheduled.
--- NOTE | 2019-09-15 11:23 | RADONC ---
RADIATION ONCOLOGY PROGRESS NOTE: DATE: 09/14/2019 CHART NUMBER: [id number] Mr. Albright is presently at a dose of 5580 cGy to his prostate bed and is tolerating treatments quite well with no difficulties related to his radiation therapy. He continues to require catheterizations which is unchanged. REVIEW OF SYSTEMS: The patient's review of systems is positive for some urinary catheterization but is otherwise noncontributory. He denies nausea, vomiting, fevers, chills, night sweats, diplopia, headaches, anxiety or depression, anorexia, weight loss, visual disturbances, chest pain, urinary or bowel difficulties, bone pain, or neurological problems. PHYSICAL EXAMINATION: The patient's skin is in good condition with no evidence of moist or dry desquamation. The remainder of his physical exam remains unchanged. Mr. Albright is tolerating treatments quite well and radiation will continue as scheduled.
--- NOTE | 2019-09-23 08:53 | RADONC ---
RADIATION ONCOLOGY PROGRESS NOTE DATE: 09/21/2019 CHART #: [id number] Mr. Albright is presently at a dose of 6480 cGy to his prostate and is tolerating treatments quite well at this point with no complaints related to his radiation treatments. The patient presents today reporting that he is doing quite well with no complaints at this time related to his radiation therapy or disease. He has no urinary or bowel difficulties and no bone pain. REVIEW OF SYSTEMS: The patient's review of systems is noncontributory. Denies nausea, vomiting, fevers, chills, night sweats, diplopia, headaches, anxiety or depression, anorexia, weight loss, visual disturbances, chest pain, urinary or bowel difficulties, bone pain, or neurological problems. PHYSICAL EXAMINATION: The patient's skin is in good condition with no evidence of radiation change present. There is no moist or dry desquamation. The remainder of his physical exam remains unchanged. Mr. Albright is tolerating treatments quite well and radiation will continue as scheduled.
== END 2019-09-26 ==
LOC: M ONCR 14:15
PROVIDERS: ATTEND Radiology Radiation Oncology
DX: C61 Malignant neoplasm of prostate (principal)

== ENCOUNTER → 2019-10-01 | Outpatient (REF) | payer MEDICARE, OTHER ==
[~2019-10-01] MED LIST changes: +OMEP-172 PO; -OMEP20CA4 PO
== END ==
LOC: M LAB REF 13:49
PROVIDERS: ATTEND Internal Medicine Nephrology
DX: Z94.0 Kidney transplant status (principal)

== ENCOUNTER 2019-10-05 08:31 | Outpatient (RCR) | payer MEDICARE, BC, OTHER ==
--- NOTE | 2019-09-29 15:57 | RADONC ---
RADIATION ONCOLOGY TREATMENT NOTE DATE OF SERVICE: 09/29/2019 CHART NUMBER: [id number] Mr. Albright is a 69-year-old gentleman, who carries a diagnosis of prostate CA. So far, he has received dose of 6400 cGy to his prostate. He has no problem. He has a catheter. He is urinating 2-4 times a night. He has no bowel problems. Otherwise, he tolerates treatment well and treatment will continue as planned. MTDD
--- NOTE | 2019-10-05 13:17 | RADONC ---
RADIATION ONCOLOGY TREATMENT SUMMARY DATE OF SERVICE: 10/05/2019 CHART NUMBER: [id number]. DIAGNOSIS: Prostate cancer. STAGE: I, [id number]. ECOG PERFORMANCE STATUS: 0. TREATMENT SUMMARY: Mr. Albright is a very pleasant 69-year-old white male with the diagnosis what appears to be a stage I, [id number] moderate to poorly differentiated Brad score 7 (3-4) adenocarcinoma of the prostate who presented to us for consideration of definitive external beam radiation therapy with IMRT/IGRT. We treated the patient to his prostate for a total dose of 7920 cGy delivered in 44 fractions of 180 cGy each over 60 elapsed days from 08/03/2019 through 10/05/2019. The patient's prostate was treated on the linear accelerator utilizing a 6 MV photon beam via IMRT/IGRT. We initially treated the prostate and seminal vesicles to a dose of 5400 cGy and subsequently coned down to the prostate itself for an additional 2520 cGy, once again bringing it to a total dose of 7920 cGy. Mr. Albright tolerated his treatments quite well and continue to catheterize himself throughout the course of treatment. He had been catheterizing himself for many years, and this is unrelated to his radiation therapy. He had no significant complaints related to his RT treatments. I have scheduled the patient to see me when he returns from [place] in January. He is leaving for [place] at this point. He has been instructed to contact me if I could be of any assistance in the meantime. The patient has our office number, as well as cell phone number. cc: MD Skylar Miller NP
== END 2019-10-27 ==
LOC: M ONCR 08:31
PROVIDERS: ATTEND Radiology Radiation Oncology
DX: C61 Malignant neoplasm of prostate (principal)

== ENCOUNTER → 2020-02-15 | Outpatient (CLI) | payer MEDICARE, BC, OTHER ==
[~2020-02-15] MED LIST changes: -MERO1INJ IV; +MERO1VIA3 IV; -OMEP-172 PO; +OMEP1CAP73 PO; +PROG1CAP11 PO; -PROG1CAP2 PO
== END ==
LOC: M ONCR 09:01
PROVIDERS: ATTEND Radiology Radiation Oncology
DX: C61 Malignant neoplasm of prostate (principal)

== ENCOUNTER → 2020-02-18 | Outpatient (REF) | payer MEDICARE, OTHER | LOC: M LAB REF 16:31 | PROVIDERS: ATTEND Internal Medicine Nephrology | DX: Z94.0 Kidney transplant status (principal) ==

== ENCOUNTER → 2020-03-10 | Outpatient (REF) | payer MEDICARE, OTHER | LOC: M SFHCCLAY 14:01 | PROVIDERS: ATTEND Urology | DX: C61 Malignant neoplasm of prostate (principal) ==

== ENCOUNTER → 2020-03-23 | Outpatient (REF) | payer MEDICARE, OTHER | LOC: M LAB REF 16:43 | PROVIDERS: ATTEND Internal Medicine Nephrology | DX: Z94.0 Kidney transplant status (principal) ==

== ENCOUNTER → 2020-04-25 | Outpatient (REF) | payer MEDICARE, OTHER | LOC: M LAB REF 16:39 | PROVIDERS: ATTEND Internal Medicine Nephrology | DX: Z94.0 Kidney transplant status (principal) ==

== ENCOUNTER → 2020-06-17 | Outpatient (REF) | payer MEDICARE, OTHER ==
[~2020-06-17] MED LIST changes: +AMLO1TAB24 PO; -AMLO5TAB6 PO; -ASPI81TA85 PO; +ASPI81TA86 PO
== END ==
LOC: M LAB REF 17:56
PROVIDERS: ATTEND Internal Medicine Nephrology
DX: Z94.0 Kidney transplant status (principal)

== ENCOUNTER → 2020-07-19 | Outpatient (REF) | payer MEDICARE, OTHER | LOC: M LAB REF 17:10 | PROVIDERS: ATTEND Internal Medicine Nephrology | DX: Z94.0 Kidney transplant status (principal) ==

== ENCOUNTER → 2020-08-23 | Outpatient (REF) | payer MEDICARE, OTHER | LOC: M LAB REF 16:52 | PROVIDERS: ATTEND Internal Medicine Nephrology | DX: Z94.0 Kidney transplant status (principal) ==

== ENCOUNTER → 2020-09-08 | Outpatient (REF) | payer MEDICARE, OTHER | LOC: M PLALAB 09:49 | PROVIDERS: ATTEND Urology | DX: C61 Malignant neoplasm of prostate (principal) | CPT/HCPCS: 36415; 84153; G0463 ==

== ENCOUNTER → 2020-10-04 | Outpatient (REF) | payer MEDICARE, OTHER | LOC: M LAB REF 17:02 | PROVIDERS: ATTEND Internal Medicine Nephrology | DX: Z94.0 Kidney transplant status (principal) ==

== ENCOUNTER 2020-11-05 15:01 | Emergency (ER) | payer MEDICARE, OTHER ==
[~2020-11-05] VITALS: Ht 177.8 cm; Wt 88.6 kg
[2020-11-05] MEDS ORDERED: PIOG1TAB36 PO (15:16)
[2020-11-05] MEDS ORDERED: METF10004 PO (15:16)
[2020-11-05] MEDS ORDERED: GLIP10TA PO (15:16)
[2020-11-05 17:55] LABS: BASO % 0.2 % (0.0-1.0); EOS % 0.3 % (0.0-3.0); HEMATOCRIT 41.3 % (42.0-52.0); HEMOGLOBIN 13.4 g/dl (13.5-17.5); LYMPH # 0.7 10^3/uL (1.5-5.0); LYMPH % 11.9 % (24.0-44.0); MEAN CORPUSCULAR HEMOGLOBIN 27.4 pg (27.0-33.0); MEAN CORPUSCULAR HGB CONC 32.4 g/dl (32.0-36.5); MEAN CORPUSCULAR VOLUME 84.5 fl (80.0-96.0); MONO # 0.3 10^3/uL (0.0-0.8); MONO % 5.1 % (0.0-5.0); NEUTROPHILS % 82.3 % (36.0-66.0); PLATELET COUNT, AUTOMATED 162 10^3/uL (150-450); RED BLOOD COUNT 4.89 10^6/uL (4.30-6.10); WHITE BLOOD COUNT 6.1 10^3/uL (4.0-10.0)
[2020-11-05 18:24] LABS: BLOOD UREA NITROGEN 27 MG/DL (7-18); CALCIUM LEVEL 9.1 MG/DL (8.8-10.2); CARBON DIOXIDE LEVEL 25 MEQ/L (21-32); CHLORIDE LEVEL 107 MEQ/L (98-107); CREATININE FOR GFR 1.23 MG/DL (0.70-1.30); GLOMERULAR FILTRATION RATE > 60.0 (>49); GLUCOSE, FASTING 164 MG/DL (70-100); POTASSIUM SERUM 4.3 MEQ/L (3.5-5.1); SODIUM LEVEL 139 MEQ/L (136-145)
[2020-11-05 18:44] LABS: INR 1.05; PROTHROMBIN TIME 13.9 SECONDS (12.5-14.3)
[2020-11-05 18:45] LABS: PARTIAL THROMBOPLASTIN TIME 27.1 SECONDS (24.2-38.5)
[2020-11-05] MEDS ORDERED: LIDOCAINE 2% 5ML JELLY UROJET TOP ONE (19:15)
[2020-11-05 22:32] VITALS: BP 176/82
== END 2020-11-05 22:34 | disposition home or self-care (01) ==
LOC: M ED 15:01
DX: R31.29 Other microscopic hematuria (principal); Z46.6 Encounter for fitting and adjustment of urinary device; Z85.46 Personal history of malignant neoplasm of prostate; Z92.3 Personal history of irradiation; E11.9 Type 2 diabetes mellitus without complications; I10 Essential (primary) hypertension; I71.4 Abdominal aortic aneurysm, without rupture; K21.9 Gastro-esophageal reflux disease without esophagitis; E03.9 Hypothyroidism, unspecified; Z87.442 Personal history of urinary calculi; Z87.448 Personal history of other diseases of urinary system; Z87.01 Personal history of pneumonia (recurrent); N31.2 Flaccid neuropathic bladder, not elsewhere classified; Q61.3 Polycystic kidney, unspecified; N40.1 Benign prostatic hyperplasia with lower urinary tract symptoms; Z94.0 Kidney transplant status; Z79.82 Long term (current) use of aspirin; Z79.84 Long term (current) use of oral hypoglycemic drugs; Z79.899 Other long term (current) drug therapy; Z88.0 Allergy status to penicillin; Z88.1 Allergy status to other antibiotic agents

== ENCOUNTER → 2020-11-28 | Outpatient (REF) | payer MEDICARE, OTHER ==
[~2020-11-28] MED LIST changes: +GLIP10TA PO; +METF10004 PO; +PIOG1TAB36 PO
== END ==
LOC: M LAB REF 16:35
PROVIDERS: ATTEND Internal Medicine Nephrology
DX: Z94.0 Kidney transplant status (principal)

== ENCOUNTER → 2020-12-26 | Outpatient (REF) | payer MEDICARE, OTHER | LOC: M LAB REF 16:57 | PROVIDERS: ATTEND Internal Medicine Nephrology | DX: Z94.0 Kidney transplant status (principal) ==

== ENCOUNTER → 2021-01-23 | Outpatient (REF) | payer MEDICARE, OTHER ==
[2021-01-26 00:07] LABS: PSA TOTAL <0.1 ng/mL (0.0-4.0)
== END ==
LOC: M SFHCLERA 11:48
PROVIDERS: ATTEND Urology
DX: Z12.5 Encounter for screening for malignant neoplasm of prostate (principal); N40.0 Benign prostatic hyperplasia without lower urinary tract symptoms

== ENCOUNTER → 2021-01-26 | Outpatient (REF) | payer MEDICARE, OTHER | LOC: M LAB REF 16:39 | PROVIDERS: ATTEND Internal Medicine Nephrology | DX: Z94.0 Kidney transplant status (principal) | CPT/HCPCS: 80197; G0463 ==

== ENCOUNTER → 2021-04-07 | Outpatient (REF) | payer MEDICARE, OTHER | LOC: M LAB REF 16:39 | PROVIDERS: ATTEND Internal Medicine Nephrology | DX: Z94.0 Kidney transplant status (principal) ==

== ENCOUNTER → 2021-05-08 | Outpatient (REF) | payer MEDICARE, OTHER | LOC: M LAB REF 17:16 | PROVIDERS: ATTEND Internal Medicine Nephrology | DX: E83.42 Hypomagnesemia (principal); Z94.0 Kidney transplant status ==

== ENCOUNTER → 2021-07-11 | Outpatient (REF) | payer MEDICARE, OTHER ==
[~2021-07-11] MED LIST changes: -MOME50SP; +NASO50SP3
[2021-07-11 15:28] LABS: FREE T4 1.22 NG/DL (0.76-1.46); MAGNESIUM LEVEL 2.1 MG/DL (1.8-2.4); THYROID STIMULATING HORMONE 0.907 uIU/ML (0.358-3.740)
== END ==
LOC: M LAB REF 13:12
PROVIDERS: ATTEND Internal Medicine Nephrology
DX: Z94.0 Kidney transplant status (principal); E83.42 Hypomagnesemia; E03.9 Hypothyroidism, unspecified

== ENCOUNTER → 2021-08-07 | Outpatient (REF) | payer MEDICARE, OTHER ==
[~2021-08-07] MED LIST changes: +MOME50SP; -NASO50SP3
[2021-08-09 23:11] LABS: PSA TOTAL 0.2 ng/mL (0.0-4.0)
== END ==
LOC: M SFHCCLAY 10:39
PROVIDERS: ATTEND Urology
DX: R97.20 Elevated prostate specific antigen [PSA] (principal); C61 Malignant neoplasm of prostate

== ENCOUNTER → 2021-08-14 | Outpatient (REF) | payer MEDICARE, OTHER | LOC: M LAB REF 13:26 | PROVIDERS: ATTEND Internal Medicine Nephrology | DX: Z94.0 Kidney transplant status (principal) ==

== ENCOUNTER → 2021-09-15 | Outpatient (REF) | payer MEDICARE, OTHER | LOC: M LAB REF 13:21 | PROVIDERS: ATTEND Internal Medicine Nephrology | DX: Z94.0 Kidney transplant status (principal) ==

== ENCOUNTER → 2022-02-06 | Outpatient (REF) | payer MEDICARE, OTHER ==
[~2022-02-06] MED LIST changes: -MOME50SP; +NASO50SP3
== END ==
LOC: M SFHCCLAY 10:02
PROVIDERS: ATTEND Urology
DX: C61 Malignant neoplasm of prostate (principal)

== ENCOUNTER → 2022-03-02 | Outpatient (CLI) | payer MEDICARE, OTHER ==
[2022-03-02 09:34] LABS: HEMATOCRIT 42.2 % (42.0-52.0); HEMOGLOBIN 14.1 g/dl (13.5-17.5); MEAN CORPUSCULAR HEMOGLOBIN 29.4 pg (27.0-33.0); MEAN CORPUSCULAR HGB CONC 33.4 g/dl (32.0-36.5); MEAN CORPUSCULAR VOLUME 88.1 fl (80.0-96.0); PLATELET COUNT, AUTOMATED 147 10^3/uL (150-450); RED BLOOD COUNT 4.79 10^6/uL (4.30-6.10); WHITE BLOOD COUNT 6.2 10^3/uL (4.0-10.0)
[2022-03-02 10:12] LABS: ALBUMIN 3.5 GM/DL (3.2-5.2); ALT/SGPT 11 U/L (12-78); BILIRUBIN,TOTAL 0.7 MG/DL (0.2-1.0); BLOOD UREA NITROGEN 26 MG/DL (7-18); CALCIUM LEVEL 9.8 MG/DL (8.8-10.2); CARBON DIOXIDE LEVEL 29 MEQ/L (21-32); CHLORIDE LEVEL 105 MEQ/L (98-107); CREATININE FOR GFR 1.07 MG/DL (0.70-1.30); FREE T4 1.05 NG/DL (0.76-1.46); GLOMERULAR FILTRATION RATE > 60.0 (>42); GLUCOSE, FASTING 174 MG/DL (70-100); MAGNESIUM LEVEL 2.1 MG/DL (1.8-2.4); POTASSIUM SERUM 4.2 MEQ/L (3.5-5.1); SODIUM LEVEL 140 MEQ/L (136-145); TOTAL PROTEIN 6.5 GM/DL (6.4-8.2)
== END ==
LOC: M LAB 09:09
PROVIDERS: ATTEND Physician Assistant
DX: R00.2 Palpitations (principal)

== ENCOUNTER 2022-03-20 13:45 | Outpatient (CLI) | payer MEDICARE, BC, OTHER ==
[~2022-03-20] VITALS: Ht 175.3 cm; Wt 86.0 kg
[2022-03-20 13:58] VITALS: BP 158/76
[2022-03-20 15:16] VITALS: BP 148/72
[2022-03-20] MEDS ORDERED: TIXAGEVIMAB/CILGAVIMAB (EVUSHELD) 150MG-150MG 3ML VIAL (EUA) IM NO SITE SCH (15:30)
== END 2022-03-20 15:16 | disposition home or self-care (01) ==
LOC: M INFU 13:45
PROVIDERS: ATTEND Internal Medicine Nephrology
DX: Z48.22 Encounter for aftercare following kidney transplant (principal); Z88.0 Allergy status to penicillin; Z88.1 Allergy status to other antibiotic agents

== ENCOUNTER → 2022-07-06 | Outpatient (REF) | payer MEDICARE, OTHER | LOC: M LAB REF 16:56 | PROVIDERS: ATTEND Internal Medicine Nephrology | DX: N39.0 Urinary tract infection, site not specified (principal); Z94.0 Kidney transplant status ==

== ENCOUNTER → 2022-08-16 | Outpatient (REF) | payer MEDICARE, OTHER | LOC: M SFHCCLAY 11:19 | PROVIDERS: ATTEND Urology | DX: C61 Malignant neoplasm of prostate (principal) ==

== ENCOUNTER → 2022-08-31 | Outpatient (REF) | payer MEDICARE, OTHER ==
[2022-08-31 18:39] LABS: FREE T4 1.3 NG/DL (0.76-1.46); THYROID STIMULATING HORMONE 1.04 uIU/ML (0.358-3.740)
== END ==
LOC: M LAB REF 17:33
PROVIDERS: ATTEND Internal Medicine Nephrology
DX: Z94.0 Kidney transplant status (principal); E11.22 Type 2 diabetes mellitus with diabetic chronic kidney disease; E03.9 Hypothyroidism, unspecified

== ENCOUNTER → 2022-09-10 | Outpatient (REF) | payer MEDICARE, OTHER ==
[~2022-09-10] MED LIST changes: +AMOX875T2 PO; +ASPI-161 PO; +ASPI81CH33 PO; +BACTDSTA PO; +CARV6.25 PO; +GLIP5TAB8 PO; +K-PHTAB2 PO; +MACR100C43 PO; +MAG100TA PO; +MAGN50TA PO; +METF-838 PO; +OMEP-173 PO; +PATIENT COMMENT; +PIOG1TAB37 PO; +PRAV10TA3 PO; +PRED5PAK PO; +TACR0.5C3 PO; +TRUL10IN SQ; -VIAG100T; +VIAG100T PO
== END ==
LOC: M SMT 13:05
PROVIDERS: ATTEND Urology
DX: R31.9 Hematuria, unspecified (principal)

== ENCOUNTER 2022-09-20 08:51 | Inpatient (IN) | payer MEDICARE, OTHER ==
[~2022-09-20] VITALS: Ht 175.3 cm; Wt 84.2 kg
[~2022-09-20 08:51] MED LIST changes: -AMOX875T2 PO; -ASPI-161 PO; -ASPI81CH33 PO; -BACTDSTA PO; -CARV6.25 PO; -GLIP5TAB8 PO; -K-PHTAB2 PO; -MACR100C43 PO; -MAG100TA PO; -MAGN50TA PO; -METF-838 PO; -OMEP-173 PO; -PATIENT COMMENT; -PIOG1TAB37 PO; -PRAV10TA3 PO; -PRED5PAK PO; -TACR0.5C3 PO; -TRUL10IN SQ
[2022-09-20] MEDS ORDERED: TRUL10IN SQ (09:12)
[2022-09-20 10:34] LABS: BASO % 0.2 % (0.0-1.0); EOS # 0.1 10^3/uL (0.0-0.5); HEMATOCRIT 28.7 % (42.0-52.0); HEMOGLOBIN 9.3 g/dl (13.5-17.5); LYMPH # 0.6 10^3/uL (1.5-5.0); LYMPH % 9.6 % (24.0-44.0); MEAN CORPUSCULAR HEMOGLOBIN 28.3 pg (27.0-33.0); MEAN CORPUSCULAR HGB CONC 32.4 g/dl (32.0-36.5); MEAN CORPUSCULAR VOLUME 87.2 fl (80.0-96.0); MONO # 0.4 10^3/uL (0.0-0.8); MONO % 6.9 % (2.0-8.0); NEUTROPHILS # 4.9 10^3/uL (1.5-8.5); PLATELET COUNT, AUTOMATED 156 10^3/uL (150-450); RED BLOOD COUNT 3.29 10^6/uL (4.30-6.10); WHITE BLOOD COUNT 5.9 10^3/uL (4.0-10.0)
[2022-09-20 10:51] LABS: INR 1.01; PROTHROMBIN TIME 13.5 SECONDS (12.5-14.5)
[2022-09-20 11:04] LABS: ALBUMIN 3.2 G/DL (3.2-5.2); ALT/SGPT 12 U/L (7.0-40); BILIRUBIN,TOTAL 0.6 MG/DL (0.3-1.2); BLOOD UREA NITROGEN 32 MG/DL (9-23); CALCIUM LEVEL 7.9 MG/DL (8.3-10.6); CARBON DIOXIDE LEVEL 26 MMOL/L (20-31); CHLORIDE LEVEL 104 MMOL/L (98-107); CREATININE FOR GFR 1.11 MG/DL (0.70-1.30); GLOMERULAR FILTRATION RATE > 60.0 (>42); GLUCOSE, FASTING 178 MG/DL (74-106); POTASSIUM SERUM 4.2 MMOL/L (3.5-5.1); SODIUM LEVEL 137 MMOL/L (136-145); TOTAL PROTEIN 5.3 G/DL (5.7-8.2)
[2022-09-20] MEDS ORDERED: ASPI81CH33 PO (12:50)
[2022-09-20] MEDS ORDERED: METF-838 PO (12:50)
[2022-09-20] MEDS ORDERED: MAG100TA PO (12:55)
[2022-09-20] MEDS ORDERED: GLIP5TAB8 PO (12:55)
[2022-09-20] MEDS ORDERED: OMEP-173 PO (12:55)
[2022-09-20] MEDS ORDERED: TACR0.5C3 PO (13:02)
[2022-09-20] MEDS ORDERED: MAGN50TA PO (13:02)
[2022-09-20] MEDS ORDERED: PRED5PAK PO (13:02)
[2022-09-20] MEDS ORDERED: PATIENT COMMENT (13:07)
[2022-09-20] MEDS ORDERED: K-PHTAB2 PO (13:10)
[2022-09-20] MEDS ORDERED: GLUCAGON INJ 1MG VIAL SC PRN (13:15)
[2022-09-20] MEDS ORDERED: HOME MED LIST COMPLETE! XX SCH (13:15)
[2022-09-20] MEDS ORDERED: GLUCOSE 4GM CHEW TABLET PO PRN (13:15)
[2022-09-20] MEDS ORDERED: DEXTROSE 50% 50 ML SYRINGE IV PRN (13:15)
[2022-09-20 13:49] LABS: RSV AMPLIFICATION NEGATIVE (NEGATIVE)
[2022-09-20] MEDS ORDERED: GLIP5TAB20 PO (14:30)
[2022-09-20 15:08] LABS: FERRITIN 9.2 NG/ML (10.5-307.3); IRON (FE) 37 UG/DL (65-175); PERCENT SATURATION 11.3 % (19.7-50.0); TOTAL IRON BINDING CAPACITY 327 UG/DL (250-425)
[2022-09-20 15:44] VITALS: BP 140/65
[2022-09-20] MEDS ORDERED: FERRIC CARBOXYMALTOSE INJ 1,000 MG in NS 250 ML IV ONE (18:00)
[2022-09-20] MEDS: K-PHOS NEUTRAL 250MG TABLET (SOD.PHOSPHATE/POT.PHOSPHATE) PO SCH ×2 (18:20→20:17)
[2022-09-20] MEDS: INSULIN LISPRO (NovoLOG) PER UNIT SC SCH ×2 (18:20→20:19)
[2022-09-20 20:00] VITALS: BP 138/65
[2022-09-20] MEDS: TACROLIMUS 0.5 MG CAP PO SCH (20:17)
[2022-09-20] MEDS: MYCOPHENOLATE MOFETIL 250 MG CAP (J7517) PO SCH (20:18)
[2022-09-20] MEDS: CARVedilol 12.5 MG TAB PO SCH (20:18)
[2022-09-21] VITALS: BP 135/67
[2022-09-21 04:00] VITALS: BP 136/68
[2022-09-21 05:57] LABS: HEMATOCRIT 28.1 % (42.0-52.0); HEMOGLOBIN 9.3 g/dl (13.5-17.5); MEAN CORPUSCULAR HEMOGLOBIN 28.7 pg (27.0-33.0); MEAN CORPUSCULAR HGB CONC 33.1 g/dl (32.0-36.5); MEAN CORPUSCULAR VOLUME 86.7 fl (80.0-96.0); PLATELET COUNT, AUTOMATED 145 10^3/uL (150-450); RED BLOOD COUNT 3.24 10^6/uL (4.30-6.10); WHITE BLOOD COUNT 5.7 10^3/uL (4.0-10.0)
[2022-09-21] MEDS: LEVOTHYROXINE 125MCG TABLET (0.125MG) PO SCH (06:00)
[2022-09-21 06:10] LABS: PROTHROMBIN TIME 13.4 SECONDS (12.5-14.5)
[2022-09-21 07:26] LABS: BLOOD UREA NITROGEN 17 MG/DL (9-23); CALCIUM LEVEL 8.1 MG/DL (8.3-10.6); CARBON DIOXIDE LEVEL 24 MMOL/L (20-31); CHLORIDE LEVEL 107 MMOL/L (98-107); CREATININE FOR GFR 0.99 MG/DL (0.70-1.30); GLOMERULAR FILTRATION RATE > 60.0 (>42); GLUCOSE, FASTING 130 MG/DL (74-106); POTASSIUM SERUM 3.7 MMOL/L (3.5-5.1); SODIUM LEVEL 139 MMOL/L (136-145)
[2022-09-21 08:00] VITALS: BP 113/63
[2022-09-21] MEDS: OMEPRAZOLE 20MG CAP PO SCH ×2 (09:00→09:20)
[2022-09-21] MEDS: INSULIN LISPRO (NovoLOG) PER UNIT SC SCH ×4 (09:19→20:16)
[2022-09-21] MEDS: CARVedilol 12.5 MG TAB PO SCH ×2 (09:20→20:15)
[2022-09-21] MEDS: FOLIC ACID 1MG TAB PO SCH (09:20)
[2022-09-21] MEDS: predniSONE 5 MG TAB PO SCH (09:21)
[2022-09-21] MEDS: TACROLIMUS 0.5 MG CAP PO SCH ×2 (09:21→20:15)
[2022-09-21] MEDS: amLODIPine 5 MG TAB PO SCH (09:21)
[2022-09-21] MEDS: MYCOPHENOLATE MOFETIL 250 MG CAP (J7517) PO SCH ×2 (09:22→20:16)
[2022-09-21] MEDS: K-PHOS NEUTRAL 250MG TABLET (SOD.PHOSPHATE/POT.PHOSPHATE) PO SCH ×4 (09:22→20:15)
[2022-09-21 16:00] VITALS: BP 128/62
[2022-09-21 16:34] LABS: PERCENT SATURATION 116.2 % (19.7-50.0)
[2022-09-21 20:11] VITALS: BP 142/66
[2022-09-22 04:00] VITALS: BP 142/67
[2022-09-22] MEDS: LEVOTHYROXINE 125MCG TABLET (0.125MG) PO SCH (05:04)
[2022-09-22 05:47] LABS: HEMATOCRIT 28.7 % (42.0-52.0); HEMOGLOBIN 9.5 g/dl (13.5-17.5); MEAN CORPUSCULAR HEMOGLOBIN 28.4 pg (27.0-33.0); MEAN CORPUSCULAR HGB CONC 33.1 g/dl (32.0-36.5); MEAN CORPUSCULAR VOLUME 85.9 fl (80.0-96.0); PLATELET COUNT, AUTOMATED 148 10^3/uL (150-450); RED BLOOD COUNT 3.34 10^6/uL (4.30-6.10); WHITE BLOOD COUNT 6.5 10^3/uL (4.0-10.0)
[2022-09-22 06:23] LABS: BLOOD UREA NITROGEN 17 MG/DL (9-23); CALCIUM LEVEL 8.3 MG/DL (8.3-10.6); CARBON DIOXIDE LEVEL 25 MMOL/L (20-31); CHLORIDE LEVEL 106 MMOL/L (98-107); CREATININE FOR GFR 0.96 MG/DL (0.70-1.30); GLOMERULAR FILTRATION RATE > 60.0 (>42); GLUCOSE, FASTING 140 MG/DL (74-106); POTASSIUM SERUM 3.6 MMOL/L (3.5-5.1); SODIUM LEVEL 140 MMOL/L (136-145)
[2022-09-22 07:58] VITALS: BP 134/65
[2022-09-22] MEDS ORDERED: AMOX875T2 PO (08:51)
[2022-09-22] MEDS ORDERED: AUGMENTIN 875 MG TAB PO SCH (09:00)
[2022-09-22] MEDS: INSULIN LISPRO (NovoLOG) PER UNIT SC SCH (09:28)
[2022-09-22] MEDS: K-PHOS NEUTRAL 250MG TABLET (SOD.PHOSPHATE/POT.PHOSPHATE) PO SCH (09:29)
[2022-09-22] MEDS: predniSONE 5 MG TAB PO SCH (09:29)
[2022-09-22] MEDS: TACROLIMUS 0.5 MG CAP PO SCH (09:29)
[2022-09-22] MEDS: OMEPRAZOLE 20MG CAP PO SCH (09:29)
[2022-09-22] MEDS: FOLIC ACID 1MG TAB PO SCH (09:29)
[2022-09-22 09:30] VITALS: BP 134/65
[2022-09-22] MEDS: MYCOPHENOLATE MOFETIL 250 MG CAP (J7517) PO SCH (09:30)
[2022-09-22] MEDS: CARVedilol 12.5 MG TAB PO SCH (09:30)
[2022-09-22] MEDS: amLODIPine 5 MG TAB PO SCH (09:30)
== END 2022-09-22 12:45 | disposition home or self-care (01) | DRG 699 ==
LOC: M ED 08:51 → M ED INP 13:11 → ENRESERV 15:05 → M PCU 15:44
PROVIDERS: ADMIT Student in an Organized Health Care Education/Training Program; ATTEND Student in an Organized Health Care Education/Training Program
DX: N30.41 Irradiation cystitis with hematuria (principal); Z94.0 Kidney transplant status; D84.9 Immunodeficiency, unspecified; D62 Acute posthemorrhagic anemia; Z85.46 Personal history of malignant neoplasm of prostate; I10 Essential (primary) hypertension; E11.9 Type 2 diabetes mellitus without complications; Z92.3 Personal history of irradiation; E78.5 Hyperlipidemia, unspecified; E03.9 Hypothyroidism, unspecified; N31.2 Flaccid neuropathic bladder, not elsewhere classified; N43.3 Hydrocele, unspecified; K21.9 Gastro-esophageal reflux disease without esophagitis; Z79.82 Long term (current) use of aspirin; Z79.84 Long term (current) use of oral hypoglycemic drugs; Z79.52 Long term (current) use of systemic steroids; Z79.899 Other long term (current) drug therapy; Z20.822 Contact with and (suspected) exposure to COVID-19; Z88.0 Allergy status to penicillin; Z88.1 Allergy status to other antibiotic agents

== ENCOUNTER 2022-09-24 13:28 | Day surgery (SDC) | payer MEDICARE, OTHER ==
[~2022-09-24] VITALS: Ht 175.3 cm; Wt 86.6 kg
[~2022-09-24 13:28] MED LIST changes: +AMOX875T2 PO; +ASPI81CH33 PO; +GLIP5TAB8 PO; +K-PHTAB2 PO; +MAG100TA PO; +MAGN50TA PO; +METF-838 PO; +OMEP-173 PO; +PATIENT COMMENT; +PRED5PAK PO; +TACR0.5C3 PO; +TRUL10IN SQ
[2022-09-24] MEDS ORDERED: NS 1,000 ML IV ONE (15:35)
[2022-09-24 16:12] LABS: BASO % 0.1 % (0.0-1.0); EOS % 0.5 % (0.0-3.0); HEMATOCRIT 30.1 % (42.0-52.0); HEMOGLOBIN 9.9 g/dl (13.5-17.5); LYMPH # 0.7 10^3/uL (1.5-5.0); LYMPH % 8.4 % (24.0-44.0); MEAN CORPUSCULAR HEMOGLOBIN 29.1 pg (27.0-33.0); MEAN CORPUSCULAR HGB CONC 32.9 g/dl (32.0-36.5); MEAN CORPUSCULAR VOLUME 88.5 fl (80.0-96.0); MONO # 0.5 10^3/uL (0.0-0.8); MONO % 6.2 % (2.0-8.0); NEUTROPHILS # 6.6 10^3/uL (1.5-8.5); NEUTROPHILS % 84.2 % (36.0-66.0); PLATELET COUNT, AUTOMATED 168 10^3/uL (150-450); WHITE BLOOD COUNT 7.9 10^3/uL (4.0-10.0)
[2022-09-24 16:43] LABS: CARBON DIOXIDE LEVEL 25 MMOL/L (20-31); CHLORIDE LEVEL 103 MMOL/L (98-107); SODIUM LEVEL 136 MMOL/L (136-145)
[2022-09-24 16:49] LABS: CALCIUM LEVEL 8.6 MG/DL (8.3-10.6); GLUCOSE, FASTING 176 MG/DL (74-106)
[2022-09-24 16:51] LABS: CREATININE FOR GFR 1.09 MG/DL (0.70-1.30); GLOMERULAR FILTRATION RATE > 60.0 (>42)
[2022-09-24 16:53] LABS: BLOOD UREA NITROGEN 29 MG/DL (9-23); POTASSIUM SERUM 4.5 MMOL/L (3.5-5.1)
[2022-09-24] MEDS ORDERED: fentaNYL 100 MCG/2 ML INJECTION As Ordered ONE (17:52)
[2022-09-24] MEDS ORDERED: propofoL 200 MG/20 ML VIAL As Ordered ONE (17:52)
[2022-09-24] MEDS ORDERED: SUCCINYLCHOLINE 100MG/5ML SYRINGE As Ordered ONE (17:52)
[2022-09-24] MEDS ORDERED: KETOROLAC 60MG 2ML VIAL As Ordered ONE (17:52)
[2022-09-24] MEDS ORDERED: LIDOCAINE 2% 100MG/5ML SDV (FOR ANES.) As Ordered ONE (17:52)
[2022-09-24] MEDS ORDERED: ROCURONIUM BROMIDE 50MG/5ML VIAL As Ordered ONE (17:53)
[2022-09-24] MEDS ORDERED: ONDANSETRON 4MG 2ML VIAL As Ordered ONE (17:53)
[2022-09-24] MEDS ORDERED: MIDAZOLAM INJ 2MG/2ML VIAL As Ordered ONE (17:54)
[2022-09-24] MEDS ORDERED: AMOX875T2 PO (18:48)
[2022-09-24] MEDS ORDERED: POTA50TAB PO (18:48)
[2022-09-24] MEDS ORDERED: PRED5TA PO (18:48)
[2022-09-24] MEDS ORDERED: PIOG1TAB37 PO (18:48)
[2022-09-24] MEDS ORDERED: ASPI-161 PO (18:48)
[2022-09-24] MEDS ORDERED: PRAV10TA3 PO (18:48)
[2022-09-24] MEDS ORDERED: MAGN50TA PO (18:48)
[2022-09-24] MEDS ORDERED: HOME MED LIST COMPLETE! XX SCH (18:50)
[2022-09-24] MEDS ORDERED: ceFAZolin 1GM VIAL As Ordered ONE (19:00)
[2022-09-24] MEDS ORDERED: LR 1,000 ML IV SCH (19:35)
[2022-09-24] MEDS ORDERED: oxyCODONE 5MG TAB PO PRN (19:35)
[2022-09-24] MEDS ORDERED: ONDANSETRON 4MG 2ML VIAL IV PRN (19:35)
[2022-09-24] MEDS ORDERED: HYDROMORPHONE HCL 0.5 MG/ 0.5 ML SYRINGE IV PRN (19:35)
[2022-09-24] MEDS ORDERED: fentaNYL 100 MCG/2 ML INJECTION IV PRN (19:35)
[2022-09-24] MEDS ORDERED: MACR100C43 PO (19:47)
[2022-09-24 20:50] VITALS: BP 144/70
[2022-10-27] MEDS ORDERED: BACTDSTA PO (18:39)
[2022-10-31] MEDS ORDERED: CARV6.25 PO (12:13)
== END 2022-09-24 21:10 | disposition home or self-care (01) ==
LOC: M ED 13:28 → M SDC 17:43
PROVIDERS: ATTEND Urology
DX: R31.0 Gross hematuria (principal); I10 Essential (primary) hypertension; E78.5 Hyperlipidemia, unspecified; E11.9 Type 2 diabetes mellitus without complications; E03.9 Hypothyroidism, unspecified; Z85.46 Personal history of malignant neoplasm of prostate; D64.9 Anemia, unspecified; K21.9 Gastro-esophageal reflux disease without esophagitis; Z79.82 Long term (current) use of aspirin; Z79.52 Long term (current) use of systemic steroids; Z79.899 Other long term (current) drug therapy; Z88.0 Allergy status to penicillin; Z88.1 Allergy status to other antibiotic agents
CPT/HCPCS: 52001; 52214; 80048; 85025; 88305; 99284; C1769; J0330; J0690; J1100; J2250; J2405; J3010

== ENCOUNTER → 2022-10-24 | Outpatient (CLI) | payer MEDICARE, OTHER ==
[~2022-10-24] MED LIST changes: +ASPI-161 PO; +MACR100C43 PO; +PIOG1TAB37 PO; +PRAV10TA3 PO
[2022-10-24 15:18] LABS: MEAN CORPUSCULAR HEMOGLOBIN 28.1 pg (27.0-33.0); MEAN CORPUSCULAR VOLUME 87.7 fl (80.0-96.0); PLATELET COUNT, AUTOMATED 190 10^3/uL (150-450); RED BLOOD COUNT 2.85 10^6/uL (4.30-6.10); WHITE BLOOD COUNT 6.7 10^3/uL (4.0-10.0)
[2022-10-24 15:42] LABS: MAGNESIUM LEVEL 1.8 MG/DL (1.8-2.4)
[2022-10-24 15:43] LABS: BLOOD UREA NITROGEN 27 MG/DL (9-23); CALCIUM LEVEL 8.5 MG/DL (8.3-10.6); CARBON DIOXIDE LEVEL 24 MMOL/L (20-31); CHLORIDE LEVEL 105 MMOL/L (98-107); CREATININE FOR GFR 1.13 MG/DL (0.70-1.30); GLOMERULAR FILTRATION RATE > 60.0 (>42); GLUCOSE, FASTING 181 MG/DL (74-106); POTASSIUM SERUM 4.1 MMOL/L (3.5-5.1); SODIUM LEVEL 137 MMOL/L (136-145)
[2022-10-24 15:47] LABS: FREE T4 1.46 NG/DL (0.89-1.76); THYROID STIMULATING HORMONE 0.594 uIU/ML (0.55-4.78)
== END ==
LOC: M PLALAB 13:21
PROVIDERS: ATTEND Physician Assistant
DX: R00.2 Palpitations (principal)

== ENCOUNTER → 2022-11-20 | Outpatient (CLI) | payer MEDICARE, BC, OTHER ==
[~2022-11-20] MED LIST changes: +ASPI81TA26 PO; +BACTDSTA PO; +CARV6.25 PO; +CLOP75TA2 PO; +CLOP75TA99 PO; +KPHOS50TA PO; +LEVO125T4 PO; +TRUL10IN SC
== END ==
LOC: M SLEEP HO 13:09
PROVIDERS: ATTEND Physician Assistant
DX: G47.8 Other sleep disorders (principal)

== ENCOUNTER → 2022-12-03 | Outpatient (REF) | payer MEDICARE, BC, OTHER ==
[~2022-12-03] MED LIST changes: -ASPI81TA26 PO; -CLOP75TA2 PO; -CLOP75TA99 PO; -KPHOS50TA PO; -LEVO125T4 PO; -TRUL10IN SC
[2022-12-03 17:12] LABS: PERCENT SATURATION 6.2 % (19.7-50.0)
== END ==
LOC: M LAB REF 16:45
PROVIDERS: ATTEND Internal Medicine Nephrology
DX: D50.9 Iron deficiency anemia, unspecified (principal)

== ENCOUNTER 2022-12-07 12:51 | Outpatient (CLI) | payer MEDICARE, BC, OTHER ==
[~2022-12-07] VITALS: Ht 175.3 cm; Wt 85.7 kg
[~2022-12-07 12:51] MED LIST changes: +ALBUTEROL SULFATE 2.5MG/0.5ML INH NEB SOLN INH PRN; +EPINEPHrine INJ 1 MG/ML 1ML AMP IM PRN; +diphenhydrAMINE 50MG/ML VIAL IV PRN; +methylPREDNISolone 125MG 2ML VIAL IV PRN
[2022-12-07 13:15] VITALS: BP 171/72
[2022-12-07] MEDS ORDERED: FERRIC CARBOXYMALTOSE INJ 750 MG in NS 250 ML (>50kg) IV ONE ×3 (14:00)
[2022-12-07] MEDS ORDERED: NS 1,000 ML IV SCH (14:00)
[2022-12-07 14:45] VITALS: BP 188/80
== END 2022-12-07 13:15 | disposition home or self-care (01) ==
LOC: M INFU 12:51
PROVIDERS: ATTEND Internal Medicine Nephrology
DX: D50.9 Iron deficiency anemia, unspecified (principal); Z88.0 Allergy status to penicillin; Z88.1 Allergy status to other antibiotic agents

== ENCOUNTER → 2022-12-14 | Outpatient (CLI) | payer MEDICARE, BC, OTHER ==
[~2022-12-14] VITALS: Ht 175.3 cm; Wt 85.8 kg
[~2022-12-14] MED LIST changes: +ASPI81TA26 PO; +CLOP75TA2 PO; +CLOP75TA99 PO; +FERRIC CARBOXYMALTOSE INJ 750 MG in NS 250 ML (>50kg) IV ONE; +KPHOS50TA PO; +LEVO125T4 PO; +NS 1,000 ML IV SCH; +TRUL10IN SC
[2022-12-14 13:00] VITALS: BP 151/67
== END ==
LOC: M INFU 12:52
PROVIDERS: ATTEND Internal Medicine Nephrology
DX: D50.9 Iron deficiency anemia, unspecified (principal); Z88.0 Allergy status to penicillin; Z88.1 Allergy status to other antibiotic agents

== ENCOUNTER → 2022-12-31 | Outpatient (REF) | payer MEDICARE, BC, OTHER ==
[~2022-12-31] MED LIST changes: -ALBUTEROL SULFATE 2.5MG/0.5ML INH NEB SOLN INH PRN; -EPINEPHrine INJ 1 MG/ML 1ML AMP IM PRN; -FERRIC CARBOXYMALTOSE INJ 750 MG in NS 250 ML (>50kg) IV ONE; -NS 1,000 ML IV SCH; -diphenhydrAMINE 50MG/ML VIAL IV PRN; -methylPREDNISolone 125MG 2ML VIAL IV PRN
[2022-12-31 18:12] LABS: THYROID STIMULATING HORMONE 0.616 uIU/ML (0.55-4.78)
[2022-12-31 18:13] LABS: FREE T4 1.6 NG/DL (0.89-1.76)
== END ==
LOC: M LAB REF 17:05
PROVIDERS: ATTEND Internal Medicine Nephrology
DX: E11.22 Type 2 diabetes mellitus with diabetic chronic kidney disease (principal); E03.9 Hypothyroidism, unspecified; Z94.0 Kidney transplant status

== ENCOUNTER 2023-01-04 21:00 | Inpatient (IN) | payer MEDICARE, BC, OTHER ==
[~2023-01-04] VITALS: Ht 175.3 cm; Wt 82.2 kg
[~2023-01-04 21:00] MED LIST changes: -ASPI81TA26 PO; -CLOP75TA2 PO; -CLOP75TA99 PO; -KPHOS50TA PO; -LEVO125T4 PO; -TRUL10IN SC
[2023-01-04] MEDS ORDERED: CLOP75TA99 PO (21:14)
[2023-01-04] MEDS ORDERED: LIDOCAINE 2% 5ML JELLY UROJET TOP ONE (21:50)
[2023-01-04] MEDS ORDERED: fentaNYL 100 MCG/2 ML INJECTION IV ONE (22:30)
[2023-01-04 23:38] LABS: BASO % 0.4 % (0.0-1.0); EOS # 0.1 10^3/uL (0.0-0.5); EOS % 1.9 % (0.0-3.0); HEMATOCRIT 33.1 % (42.0-52.0); HEMOGLOBIN 10.4 g/dl (13.5-17.5); LYMPH # 0.9 10^3/uL (1.5-5.0); LYMPH % 19.5 % (24.0-44.0); MEAN CORPUSCULAR HEMOGLOBIN 25.9 pg (27.0-33.0); MEAN CORPUSCULAR HGB CONC 31.4 g/dl (32.0-36.5); MEAN CORPUSCULAR VOLUME 82.3 fl (80.0-96.0); MONO # 0.6 10^3/uL (0.0-0.8); MONO % 11.9 % (2.0-8.0); NEUTROPHILS # 3.1 10^3/uL (1.5-8.5); NEUTROPHILS % 66.1 % (36.0-66.0); PLATELET COUNT, AUTOMATED 135 10^3/uL (150-450); RED BLOOD COUNT 4.02 10^6/uL (4.30-6.10); WHITE BLOOD COUNT 4.7 10^3/uL (4.0-10.0)
[2023-01-04 23:49] LABS: INR 0.98; PROTHROMBIN TIME 13.2 SECONDS (12.5-14.5)
[2023-01-04 23:50] LABS: PARTIAL THROMBOPLASTIN TIME 25.2 SECONDS (24.8-34.2)
[2023-01-05] VITALS (21 sets, daily range): BP systolic 121–162; BP diastolic 66–86
[2023-01-05 00:10] LABS: RSV AMPLIFICATION NEGATIVE (NEGATIVE)
[2023-01-05] MEDS ORDERED: CARV6.25 PO ×2 (00:14→00:26)
[2023-01-05] MEDS ORDERED: ASPI81TA26 PO (00:17)
[2023-01-05] MEDS ORDERED: PIOG1TAB37 PO ×2 (00:17→00:26)
[2023-01-05] MEDS ORDERED: KPHOS50TA PO ×2 (00:17→00:26)
[2023-01-05] MEDS ORDERED: METF-838 PO ×2 (00:17→00:26)
[2023-01-05] MEDS ORDERED: GLIP5TAB20 PO ×2 (00:17→00:26)
[2023-01-05] MEDS ORDERED: LEVO125T4 PO (00:26)
[2023-01-05] MEDS ORDERED: TRUL10IN SC (00:26)
[2023-01-05] MEDS ORDERED: FOLI1TAB11 PO (00:26)
[2023-01-05] MEDS ORDERED: PRED5TA PO (00:26)
[2023-01-05] MEDS ORDERED: OMEP1CAP73 PO (00:26)
[2023-01-05] MEDS ORDERED: CLOP75TA2 PO (00:26)
[2023-01-05] MEDS ORDERED: CELL250C PO (00:26)
[2023-01-05] MEDS ORDERED: TACR0.5C3 PO (00:26)
[2023-01-05] MEDS ORDERED: MAGN50TA PO (00:26)
[2023-01-05] MEDS ORDERED: PRAV10TA3 PO (00:26)
[2023-01-05 00:29] LABS: BLOOD UREA NITROGEN 21 MG/DL (9-23); CHLORIDE LEVEL 109 MMOL/L (98-107); CREATININE FOR GFR 1.01 MG/DL (0.70-1.30); GLOMERULAR FILTRATION RATE > 60.0 (>42); GLUCOSE, FASTING 131 MG/DL (74-106); POTASSIUM SERUM 4.4 MMOL/L (3.5-5.1); SODIUM LEVEL 138 MMOL/L (136-145)
[2023-01-05 00:30] LABS: ALBUMIN 3.2 G/DL (3.2-5.2); ALKALINE PHOSPHATASE 63 U/L (46-116); ALT/SGPT 11 U/L (7.0-40); AST/SGOT 24 U/L (<34); BILIRUBIN,TOTAL 0.6 MG/DL (0.3-1.2); CARBON DIOXIDE LEVEL 21 MMOL/L (20-31); TOTAL PROTEIN 5.5 G/DL (5.7-8.2)
[2023-01-05] MEDS ORDERED: HOME MED LIST COMPLETE! XX SCH (00:30)
[2023-01-05 01:07] LABS: HEMATOCRIT 33.6 % (42.0-52.0); HEMOGLOBIN 10.5 g/dl (13.5-17.5)
[2023-01-05] MEDS ORDERED: GLUCAGON INJ 1MG VIAL SC PRN (01:30)
[2023-01-05] MEDS ORDERED: GLUCOSE 4GM CHEW TABLET PO PRN (01:30)
[2023-01-05] MEDS ORDERED: DEXTROSE 50% 50ML SYRINGE IV PRN (01:30)
[2023-01-05 05:24] LABS: HEMATOCRIT 32.4 % (42.0-52.0); HEMOGLOBIN 10.1 g/dl (13.5-17.5)
[2023-01-05] MEDS ORDERED: LEVOTHYROXINE 125MCG TABLET (0.125MG) PO SCH (06:00)
[2023-01-05] MEDS ORDERED: propofoL 200 MG/20 ML VIAL As Ordered ONE ×4 (07:56→11:02)
[2023-01-05] MEDS ORDERED: fentaNYL 100 MCG/2 ML INJECTION As Ordered ONE ×2 (07:56→10:45)
[2023-01-05] MEDS ORDERED: LIDOCAINE 2% 100MG/5ML SDV (FOR ANES.) As Ordered ONE (07:56)
[2023-01-05] MEDS ORDERED: metFORMIN XR 500MG TAB *GLUCOPHAGE XR PO SCH (08:00)
[2023-01-05] MEDS: CLOPIDOGREL 75 MG TAB PO SCH ×2 (08:58→09:00)
[2023-01-05] MEDS: INSULIN LISPRO (NovoLOG) PER UNIT SC SCH ×3 (08:59→17:30)
[2023-01-05] MEDS ORDERED: predniSONE 5 MG TAB PO SCH (09:00)
[2023-01-05] MEDS ORDERED: TACROLIMUS 1MG CAP PO SCH (09:00)
[2023-01-05] MEDS ORDERED: MYCOPHENOLATE MOFETIL 250 MG CAP (J7517) PO SCH (09:00)
[2023-01-05] MEDS ORDERED: OMEPRAZOLE 20MG CAP PO PRN (09:00)
[2023-01-05] MEDS ORDERED: glipiZIDE XL 5 MG TABCR PO SCH (09:00)
[2023-01-05] MEDS ORDERED: CARVedilol 6.25 MG TAB PO SCH (09:00)
[2023-01-05 09:30] LABS: HEMATOCRIT 32.3 % (42.0-52.0); HEMOGLOBIN 10.1 g/dl (13.5-17.5)
[2023-01-05] MEDS ORDERED: LIDOCAINE 2% 5ML JELLY UROJET As Ordered ONE (09:43)
[2023-01-05] MEDS ORDERED: MIDAZOLAM INJ 2MG/2ML VIAL As Ordered ONE (09:57)
[2023-01-05] MEDS ORDERED: PHENYLephrine 500MCG 5ML (100MCG/ML) SYRINGE As Ordered ONE (10:08)
[2023-01-05] MEDS ORDERED: METHYLENE BLUE 0.5% (5MG/ML) 10 ML AMP (PROVAYBLUE) As Ordered ONE (10:35)
[2023-01-05] MEDS ORDERED: FLUORESCEIN 10% (100MG/ML) 5ML VIAL As Ordered ONE (11:06)
[2023-01-05] MEDS ORDERED: fentaNYL 100 MCG/2 ML INJECTION IV PRN (11:30)
[2023-01-05] MEDS ORDERED: LR 1,000 ML IV SCH ×2 (11:30→17:30)
[2023-01-05] MEDS ORDERED: oxyCODONE 5MG TAB PO PRN (11:30)
[2023-01-05] MEDS ORDERED: HYDROMORPHONE HCL 0.5 MG/ 0.5 ML SYRINGE IV PRN (11:30)
[2023-01-05] MEDS ORDERED: ONDANSETRON 4MG 2ML VIAL IV PRN ×2 (11:30→15:45)
[2023-01-05 14:36] LABS: HEMATOCRIT 31.9 % (42.0-52.0); HEMOGLOBIN 9.8 g/dl (13.5-17.5)
[2023-01-05] MEDS ORDERED: ACETAMINOPHEN 500 MG TAB PO PRN (15:20)
[2023-01-05] MEDS ORDERED: PERCOCET 5MG/325MG TAB PO PRN (15:25)
[2023-01-05] MEDS: MORPHINE 2 MG/ML 1ML VIAL IV PRN ×2 (15:35→19:54)
[2023-01-05 17:05] LABS: MEAN CORPUSCULAR HEMOGLOBIN 26.7 pg (27.0-33.0); MEAN CORPUSCULAR HGB CONC 31.3 g/dl (32.0-36.5); MEAN CORPUSCULAR VOLUME 85.3 fl (80.0-96.0); PLATELET COUNT, AUTOMATED 136 10^3/uL (150-450); RED BLOOD COUNT 3.75 10^6/uL (4.30-6.10); WHITE BLOOD COUNT 10.9 10^3/uL (4.0-10.0)
[2023-01-05] MEDS ORDERED: CYSTO-CONRAY II 17.2% 250ML VIAL As Ordered ONE (18:19)
[2023-01-05 20:28] LABS: HEMATOCRIT 32.1 % (42.0-52.0); HEMOGLOBIN 9.9 g/dl (13.5-17.5)
[2023-01-05 20:54] LABS: BLOOD UREA NITROGEN 20 MG/DL (9-23); CALCIUM LEVEL 7.1 MG/DL (8.3-10.6); CARBON DIOXIDE LEVEL 16 MMOL/L (20-31); CHLORIDE LEVEL 112 MMOL/L (98-107); CREATININE FOR GFR 0.83 MG/DL (0.70-1.30); GLOMERULAR FILTRATION RATE > 60.0 (>42); GLUCOSE, FASTING 157 MG/DL (74-106); POTASSIUM SERUM 4.3 MMOL/L (3.5-5.1); SODIUM LEVEL 140 MMOL/L (136-145)
[2023-01-05] MEDS ORDERED: INSULIN LISPRO (NovoLOG) PER UNIT SC SCH (21:00)
[2023-01-05] MEDS ORDERED: PRAVASTATIN 10 MG TAB PO SCH (21:00)
[2023-01-05] MEDS ORDERED: MORPHINE 2 MG/ML 1ML VIAL IV ONE (22:00)
[2023-01-05] MEDS ORDERED: MORPHINE 4 MG/ML 1ML VIAL IV ONE (23:00)
== END 2023-01-05 22:25 | DRG 813 ==
LOC: M ED 21:00 → M ED INP 23:52 → ENRESERV 01-05 01:36 → M PCU 01-05 02:16 → M ICU 01-05 19:50
PROVIDERS: ADMIT Family Medicine; ATTEND Family Medicine
PROC: 0TCB8ZZ Extirpation of Matter from Bladder, Via Natural or Artificial Opening Endoscopic (ICD-10-PCS; principal; 2023-01-05 10:00)
DX: D68.32 Hemorrhagic disorder due to extrinsic circulating anticoagulants (principal); N30.41 Irradiation cystitis with hematuria; Z94.0 Kidney transplant status; R31.0 Gross hematuria; N31.2 Flaccid neuropathic bladder, not elsewhere classified; E21.2 Other hyperparathyroidism; I25.10 Atherosclerotic heart disease of native coronary artery without angina pectoris; E03.9 Hypothyroidism, unspecified; N18.30 Chronic kidney disease, stage 3 unspecified; E11.22 Type 2 diabetes mellitus with diabetic chronic kidney disease; E78.00 Pure hypercholesterolemia, unspecified; K21.9 Gastro-esophageal reflux disease without esophagitis; I12.9 Hypertensive chronic kidney disease with stage 1 through stage 4 chronic kidney disease, or unspecified chronic kidney disease; Z79.890 Hormone replacement therapy; Z79.899 Other long term (current) drug therapy; Z79.84 Long term (current) use of oral hypoglycemic drugs; Z88.0 Allergy status to penicillin; Z88.1 Allergy status to other antibiotic agents; Z95.828 Presence of other vascular implants and grafts; Z85.828 Personal history of other malignant neoplasm of skin; Z96.611 Presence of right artificial shoulder joint; Z86.711 Personal history of pulmonary embolism; Z85.46 Personal history of malignant neoplasm of prostate; Z92.3 Personal history of irradiation; Z79.01 Long term (current) use of anticoagulants; Z90.49 Acquired absence of other specified parts of digestive tract

== ENCOUNTER → 2023-01-17 | Outpatient (REF) | payer MEDICARE, BC, OTHER ==
[~2023-01-17] MED LIST changes: +ASPI81TA26 PO; +CLOP75TA2 PO; +CLOP75TA99 PO; +KPHOS50TA PO; +LEVO125T4 PO; +TRUL10IN SC
== END ==
LOC: M LAB REF 17:06
PROVIDERS: ATTEND Nurse Practitioner Family
DX: N18.5 Chronic kidney disease, stage 5 (principal); Z94.0 Kidney transplant status; D84.9 Immunodeficiency, unspecified; Z79.899 Other long term (current) drug therapy

== ENCOUNTER → 2023-01-28 | Outpatient (REF) | payer MEDICARE, OTHER ==
[2023-01-28 19:52] LABS: BASO % 0.5 % (0.0-1.0); EOS # 0.2 10^3/uL (0.0-0.5); EOS % 2.5 % (0.0-3.0); HEMATOCRIT 34.7 % (42.0-52.0); HEMOGLOBIN 10.7 g/dl (13.5-17.5); LYMPH % 12.8 % (24.0-44.0); MEAN CORPUSCULAR HEMOGLOBIN 26.2 pg (27.0-33.0); MEAN CORPUSCULAR HGB CONC 30.8 g/dl (32.0-36.5); MEAN CORPUSCULAR VOLUME 84.8 fl (80.0-96.0); MONO # 0.6 10^3/uL (0.0-0.8); MONO % 8.4 % (2.0-8.0); NEUTROPHILS # 5.7 10^3/uL (1.5-8.5); NEUTROPHILS % 75.4 % (36.0-66.0); PLATELET COUNT, AUTOMATED 257 10^3/uL (150-450); RED BLOOD COUNT 4.09 10^6/uL (4.30-6.10); WHITE BLOOD COUNT 7.5 10^3/uL (4.0-10.0)
[2023-01-28 20:17] LABS: BLOOD UREA NITROGEN 22 MG/DL (9-23); CALCIUM LEVEL 8.5 MG/DL (8.3-10.6); CARBON DIOXIDE LEVEL 28 MMOL/L (20-31); CHLORIDE LEVEL 104 MMOL/L (98-107); CHOLESTEROL LEVEL 116 MG/DL (<200); CHOLESTEROL RISK RATIO 2.77 (<5); CREATININE FOR GFR 0.95 MG/DL (0.70-1.30); GLOMERULAR FILTRATION RATE > 60.0 (>42); GLUCOSE, FASTING 197 MG/DL (74-106); HDL CHOLESTEROL 41.8 MG/DL (>40); LDL CHOLESTEROL 52.8 MG/DL (<100); MAGNESIUM LEVEL 1.7 MG/DL (1.8-2.4); NON-HDL-C 74.2 MG/DL; POTASSIUM SERUM 4.3 MMOL/L (3.5-5.1); SODIUM LEVEL 139 MMOL/L (136-145); TRIGLYCERIDES LEVEL 107 MG/DL (<150)
== END ==
LOC: M LABDRAWC 17:14
DX: I20.8 Other forms of angina pectoris (principal); D62 Acute posthemorrhagic anemia

== ENCOUNTER → 2023-02-06 | Outpatient (CLI) | payer MEDICARE, BC, OTHER | LOC: M RAD 13:46 | PROVIDERS: ATTEND Surgery Vascular Surgery | DX: I87.2 Venous insufficiency (chronic) (peripheral) (principal) ==

== ENCOUNTER → 2023-03-11 | Outpatient (CLI) | payer MEDICARE, BC, OTHER | LOC: M RAD 10:43 | PROVIDERS: ATTEND Surgery Vascular Surgery | DX: I82.401 Acute embolism and thrombosis of unspecified deep veins of right lower extremity (principal); Z96.89 Presence of other specified functional implants ==

== ENCOUNTER → 2023-03-18 | Outpatient (REF) | payer MEDICARE, BC, OTHER | LOC: M LAB REF 17:56 | PROVIDERS: ATTEND Internal Medicine Nephrology | DX: Z94.0 Kidney transplant status (principal) ==

== ENCOUNTER → 2023-04-15 | Outpatient (REF) | payer MEDICARE, BC, OTHER | LOC: M LAB REF 12:05 | PROVIDERS: ATTEND Internal Medicine | DX: Z79.899 Other long term (current) drug therapy (principal); D63.1 Anemia in chronic kidney disease ==

== ENCOUNTER → 2023-04-18 | Outpatient (REF) | payer MEDICARE, BC, OTHER | LOC: M LAB REF 17:14 | PROVIDERS: ATTEND Internal Medicine Nephrology | DX: Z94.0 Kidney transplant status (principal) ==

== ENCOUNTER → 2023-04-23 | Outpatient (CLI) | payer MEDICARE, BC, OTHER ==
[~2023-04-23] VITALS: Ht 176.5 cm; Wt 79.0 kg
[~2023-04-23] MED LIST changes: +ISOVUE-300 61% 100ML VIAL As Ordered ONE; +LIDOCAINE 1% MDV 20ML VIAL As Ordered ONE; +MIDAZOLAM INJ 2MG/2ML VIAL As Ordered ONE; +NS 1,000 ML IV ONE; +VANCOMYCIN 1000MG/20ML VIAL As Ordered ONE; +VANCOMYCIN HCL 1,000 MG, VIAL MATE ADAPTER 1 EACH in D5W 250 ML IV ONE; +fentaNYL 100 MCG/2 ML INJECTION As Ordered ONE
[2023-04-23 08:33] VITALS: TEMP 97.3
[2023-04-23 09:23] LABS: INR 0.95; PROTHROMBIN TIME 12.9 SECONDS (12.5-14.5)
[2023-04-23 09:34] LABS: BLOOD UREA NITROGEN 23 MG/DL (9-23); CALCIUM LEVEL 9.3 MG/DL (8.3-10.6); CARBON DIOXIDE LEVEL 26 MMOL/L (20-31); CHLORIDE LEVEL 105 MMOL/L (98-107); CREATININE FOR GFR 1.06 MG/DL (0.70-1.30); GLOMERULAR FILTRATION RATE > 60.0 (>42); GLUCOSE, FASTING 146 MG/DL (74-106); POTASSIUM SERUM 3.9 MMOL/L (3.5-5.1); SODIUM LEVEL 138 MMOL/L (136-145)
[2023-04-23 09:48] LABS: HEMOGLOBIN 12.3 g/dl (13.5-17.5); MEAN CORPUSCULAR HEMOGLOBIN 26.7 pg (27.0-33.0); MEAN CORPUSCULAR HGB CONC 33.2 g/dl (32.0-36.5); MEAN CORPUSCULAR VOLUME 80.3 fl (80.0-96.0); PLATELET COUNT, AUTOMATED 150 10^3/uL (150-450); RED BLOOD COUNT 4.61 10^6/uL (4.30-6.10); WHITE BLOOD COUNT 5.6 10^3/uL (4.0-10.0)
[2023-04-23 12:40] VITALS: BP 152/82; O2SAT 97
== END ==
LOC: M IRPRO 08:05
PROVIDERS: ATTEND Surgery Vascular Surgery
DX: Z94.0 Kidney transplant status (principal)
CPT/HCPCS: 36415; 37193; 80048; 85027; 85610; 86850; 86900; 86901; 99152; 99153; C1769; C1887; C1894; J2250; J3010; Q9967

== ENCOUNTER → 2023-06-20 | Outpatient (REF) | payer MEDICARE, BC, OTHER ==
[~2023-06-20] MED LIST changes: -ISOVUE-300 61% 100ML VIAL As Ordered ONE; -LIDOCAINE 1% MDV 20ML VIAL As Ordered ONE; -MIDAZOLAM INJ 2MG/2ML VIAL As Ordered ONE; -NS 1,000 ML IV ONE; -VANCOMYCIN 1000MG/20ML VIAL As Ordered ONE; -VANCOMYCIN HCL 1,000 MG, VIAL MATE ADAPTER 1 EACH in D5W 250 ML IV ONE; -fentaNYL 100 MCG/2 ML INJECTION As Ordered ONE
== END ==
LOC: M LAB REF 17:21
PROVIDERS: ATTEND Internal Medicine Nephrology
DX: Z94.0 Kidney transplant status (principal)

== ENCOUNTER → 2023-08-16 | Outpatient (REF) | payer MEDICARE, OTHER ==
[~2023-08-16] MED LIST changes: +GLIP5TAB17 PO; -GLIP5TAB8 PO
== END ==
LOC: M LAB REF 16:53
PROVIDERS: ATTEND Internal Medicine Nephrology
DX: Z94.0 Kidney transplant status (principal)

== ENCOUNTER 2023-10-17 10:54 | Day surgery (SDC) | payer MEDICARE, BC, OTHER ==
[~2023-10-17] VITALS: Ht 175.3 cm; Wt 81.2 kg
[~2023-10-17 10:54] MED LIST changes: +AMLO1TAB25 PO; +ASPI81CH48 PO; +ATOR40TA75 PO; +BSS IRRIG/VANCO(10MG)/TOBRA(5MG)/EPINEPH(1:1000-0.5CC)500ML BAG-ORONLY IR ONE; +CEFUROXIME 1MG/0.1ML INTRACAMERAL INJ As Ordered ONE; +CYCLOPENTOLATE 1% OPHTH SOLN 2ML BTL OD SCH; +ELIQ2.5T PO; +LIDOCAINE 1% SDV 5ML VIAL As Ordered ONE; +LIDOCAINE 3.5 % 1ML OPHTH TOPICAL GEL OU ONE; +METO200T28 PO; +OFLOXACIN 0.3 % (OCUFLOX) OPTH SOL 5ML OD ONE; +PHENYLEPHRINE 10% OPHTH SOL 5ML OD PRN; +PHENYLEPHRINE 2.5% OPHTH SOL 2ML OD SCH; +TROPICAMIDE 1% OPHTH SOLN 15ML OD SCH; +TROS20TA3 PO; +TRUL0.5I
[2023-10-17] MEDS ORDERED: MIDAZOLAM INJ 2MG/2ML VIAL As Ordered ONE (12:23)
[2023-10-17] MEDS ORDERED: fentaNYL 100 MCG/2 ML INJECTION As Ordered ONE (12:23)
[2023-10-17] MEDS ORDERED: CIPR0.3S37 (12:32)
[2023-10-17] MEDS ORDERED: KETO0.5S4 (12:32)
[2023-10-17] MEDS ORDERED: PREDOPD (12:32)
[2023-10-17 13:59] VITALS: BP 147/74; TEMP 98.1; O2SAT 98
== END 2023-10-17 14:20 | disposition home or self-care (01) ==
LOC: M SDC 10:54
PROVIDERS: ATTEND Ophthalmology
DX: E11.36 Type 2 diabetes mellitus with diabetic cataract (principal); H25.11 Age-related nuclear cataract, right eye; I10 Essential (primary) hypertension; E78.00 Pure hypercholesterolemia, unspecified; E03.9 Hypothyroidism, unspecified; Z79.899 Other long term (current) drug therapy; Z79.82 Long term (current) use of aspirin; Z79.890 Hormone replacement therapy; Z79.84 Long term (current) use of oral hypoglycemic drugs; Z88.0 Allergy status to penicillin; Z88.1 Allergy status to other antibiotic agents
CPT/HCPCS: 66984; J2250; J3010; V2632

== ENCOUNTER → 2023-11-13 | Day surgery (SDC) | payer MEDICARE, BC, OTHER ==
[~2023-11-13] VITALS: Ht 175.3 cm; Wt 80.4 kg
[~2023-11-13] MED LIST changes: +CIPR0.3S37; -CYCLOPENTOLATE 1% OPHTH SOLN 2ML BTL OD SCH; +CYCLOPENTOLATE 1% OPHTH SOLN 2ML BTL OS SCH; +KETO0.5S4; +MOXIFLOXACIN 0.6MG/0.4ML INTRAOCULAR SYRINGE As Ordered ONE; -OFLOXACIN 0.3 % (OCUFLOX) OPTH SOL 5ML OD ONE; +OFLOXACIN 0.3 % (OCUFLOX) OPTH SOL 5ML OS ONE; -PHENYLEPHRINE 10% OPHTH SOL 5ML OD PRN; +PHENYLEPHRINE 10% OPHTH SOL 5ML OS PRN; -PHENYLEPHRINE 2.5% OPHTH SOL 2ML OD SCH; +PHENYLEPHRINE 2.5% OPHTH SOL 2ML OS SCH; +PREDOPD; -TROPICAMIDE 1% OPHTH SOLN 15ML OD SCH; +TROPICAMIDE 1% OPHTH SOLN 15ML OS SCH
[2023-11-13 06:29] VITALS: BP 163/77; TEMP 97; O2SAT 99
== END | disposition home or self-care (01) ==
LOC: M SDC 06:12
PROVIDERS: ATTEND Ophthalmology
DX: H25.12 Age-related nuclear cataract, left eye (principal); Z53.8 Procedure and treatment not carried out for other reasons

== ENCOUNTER → 2023-11-21 | Outpatient (REF) | payer MEDICARE, OTHER ==
[~2023-11-21] MED LIST changes: -BSS IRRIG/VANCO(10MG)/TOBRA(5MG)/EPINEPH(1:1000-0.5CC)500ML BAG-ORONLY IR ONE; -CEFUROXIME 1MG/0.1ML INTRACAMERAL INJ As Ordered ONE; -CYCLOPENTOLATE 1% OPHTH SOLN 2ML BTL OS SCH; -LIDOCAINE 1% SDV 5ML VIAL As Ordered ONE; -LIDOCAINE 3.5 % 1ML OPHTH TOPICAL GEL OU ONE; -MOXIFLOXACIN 0.6MG/0.4ML INTRAOCULAR SYRINGE As Ordered ONE; -OFLOXACIN 0.3 % (OCUFLOX) OPTH SOL 5ML OS ONE; -PHENYLEPHRINE 10% OPHTH SOL 5ML OS PRN; -PHENYLEPHRINE 2.5% OPHTH SOL 2ML OS SCH; -TROPICAMIDE 1% OPHTH SOLN 15ML OS SCH
== END ==
LOC: M LAB REF 17:18
PROVIDERS: ATTEND Internal Medicine Nephrology
DX: Z94.0 Kidney transplant status (principal)

== ENCOUNTER 2023-11-28 10:08 | Day surgery (SDC) | payer MEDICARE, BC, OTHER ==
[~2023-11-28] VITALS: Ht 175.3 cm; Wt 80.7 kg
[~2023-11-28 10:08] MED LIST changes: -ASPI-161 PO; +ASPI-615 PO; +CEFUROXIME 1MG/0.1ML INTRACAMERAL INJ As Ordered ONE; +MIDAZOLAM INJ 2MG/2ML VIAL As Ordered ONE; +PHENYLEPHRINE 10% OPHTH SOL 5ML OS PRN
[2023-11-28] MEDS: LIDOCAINE 3.5 % 1ML OPHTH TOPICAL GEL OU ONE (10:47)
[2023-11-28] MEDS: PHENYLEPHRINE 2.5% OPHTH SOL 2ML OS SCH (10:47)
[2023-11-28] MEDS: OFLOXACIN 0.3 % (OCUFLOX) OPTH SOL 5ML OS ONE (10:47)
[2023-11-28] MEDS: CYCLOPENTOLATE 1% OPHTH SOLN 2ML BTL OS SCH (10:47)
[2023-11-28] MEDS: TROPICAMIDE 1% OPHTH SOLN 15ML OS SCH (10:48)
[2023-11-28] MEDS: MOXIFLOXACIN 0.6MG/0.4ML INTRAOCULAR SYRINGE As Ordered ONE (11:40)
[2023-11-28] MEDS: BSS IRRIG/VANCO(10MG)/TOBRA(5MG)/EPINEPH(1:1000-0.5CC)500ML BAG-ORONLY As Ordered ONE (11:40)
[2023-11-28] MEDS: LIDOCAINE 1% SDV 5ML VIAL As Ordered ONE (11:40)
[2023-11-28 11:57] VITALS: BP 132/66; TEMP 97.3; O2SAT 97
== END 2023-11-28 12:15 | disposition home or self-care (01) ==
LOC: M SDC 10:08
PROVIDERS: ATTEND Ophthalmology
DX: H25.12 Age-related nuclear cataract, left eye (principal); E11.9 Type 2 diabetes mellitus without complications; E03.9 Hypothyroidism, unspecified; I10 Essential (primary) hypertension; E78.00 Pure hypercholesterolemia, unspecified; I71.9 Aortic aneurysm of unspecified site, without rupture; Z90.79 Acquired absence of other genital organ(s); Z88.1 Allergy status to other antibiotic agents; Z88.0 Allergy status to penicillin; Z98.41 Cataract extraction status, right eye; Z79.899 Other long term (current) drug therapy; Z79.82 Long term (current) use of aspirin; Z79.890 Hormone replacement therapy; Z79.84 Long term (current) use of oral hypoglycemic drugs; Z79.85 Long-term (current) use of injectable non-insulin antidiabetic drugs
CPT/HCPCS: 66984; J2250; V2632

== ENCOUNTER 2024-01-08 15:47 | Emergency (ER) | payer MEDICARE, BC, OTHER ==
[~2024-01-08] VITALS: Ht 175.3 cm; Wt 80.1 kg
[~2024-01-08 15:47] MED LIST changes: -CEFUROXIME 1MG/0.1ML INTRACAMERAL INJ As Ordered ONE; -MIDAZOLAM INJ 2MG/2ML VIAL As Ordered ONE; -PHENYLEPHRINE 10% OPHTH SOL 5ML OS PRN
[2024-01-08 17:38] VITALS: BP 138/72; TEMP 98.3
[2024-01-08] MEDS: PERCOCET 5MG/325MG TAB PO ONE (18:46)
[2024-01-08] MEDS ORDERED: PERC5TAB12 PO (18:49)
[2024-01-08] MEDS: OXYCODONE/APAP 5MG/325MG(HOME DOSE PACK) PO ONE (19:42)
== END 2024-01-08 20:28 | disposition home or self-care (01) ==
LOC: M ED 15:47 → EDBD 15:47 → M ED 20:28
DX: S22.42XA Multiple fractures of ribs, left side, initial encounter for closed fracture (principal); S06.0XAA Concussion with loss of consciousness status unknown, initial encounter; S27.329A Contusion of lung, unspecified, initial encounter; S40.012A Contusion of left shoulder, initial encounter; V19.9XXA Pedal cyclist (driver) (passenger) injured in unspecified traffic accident, initial encounter; Y92.410 Unspecified street and highway as the place of occurrence of the external cause; Y93.9 Activity, unspecified; Y99.9 Unspecified external cause status; M25.78 Osteophyte, vertebrae; I25.10 Atherosclerotic heart disease of native coronary artery without angina pectoris; E11.9 Type 2 diabetes mellitus without complications; I10 Essential (primary) hypertension; I70.1 Atherosclerosis of renal artery; N18.6 End stage renal disease; Z79.82 Long term (current) use of aspirin; Z79.84 Long term (current) use of oral hypoglycemic drugs; Z79.899 Other long term (current) drug therapy; Z88.0 Allergy status to penicillin; Z88.1 Allergy status to other antibiotic agents; Z85.46 Personal history of malignant neoplasm of prostate

== ENCOUNTER 2024-01-13 22:14 | Inpatient (IN) | payer MEDICARE, BC, OTHER ==
[~2024-01-13] VITALS: Ht 175.3 cm; Wt 81.8 kg
[~2024-01-13 22:14] MED LIST changes: +PERC5TAB12 PO
[2024-01-13 23:29] LABS: HEMATOCRIT 40.8 % (42.0-52.0); HEMOGLOBIN 13.7 g/dl (13.5-17.5); MEAN CORPUSCULAR HGB CONC 33.6 g/dl (32.0-36.5); MEAN CORPUSCULAR VOLUME 80.3 fl (80.0-96.0); PLATELET COUNT, AUTOMATED 214 10^3/uL (150-450); RED BLOOD COUNT 5.08 10^6/uL (4.30-6.10); WHITE BLOOD COUNT 15.6 10^3/uL (4.0-10.0)
[2024-01-13 23:56] LABS: BLOOD UREA NITROGEN 25 MG/DL (9-23); CALCIUM LEVEL 9.6 MG/DL (8.3-10.6); CARBON DIOXIDE LEVEL 27 MMOL/L (20-31); CHLORIDE LEVEL 97 MMOL/L (98-107); CREATININE FOR GFR 0.93 MG/DL (0.70-1.30); GLOMERULAR FILTRATION RATE > 60.0 (>42); GLUCOSE, FASTING 252 MG/DL (74-106); POTASSIUM SERUM 4.9 MMOL/L (3.5-5.1); SODIUM LEVEL 131 MMOL/L (136-145)
[2024-01-14] MEDS: ACETAMINOPHEN TAB 650MG DOSE (2X325MG) PO ONE (04:46)
[2024-01-14] MEDS: BENZONATATE 100MG CAPSULE PO ONE (04:46)
[2024-01-14] MEDS: NS 1,000 ML IV ONE (04:46)
[2024-01-14] MEDS: ONDANSETRON 4MG 2ML VIAL IV ONE (04:47)
[2024-01-14] MEDS: MORPHINE 4 MG/ML 1ML VIAL IV PRN (04:49)
[2024-01-14] MEDS: LevoFLOXacin IV 500 MG in IV 1 EA IV ONE (04:50)
[2024-01-14] MEDS ORDERED: GLUCAGON INJ 1MG VIAL SC PRN (06:05)
[2024-01-14] MEDS ORDERED: DEXTROSE 50% 50ML SYRINGE IV PRN (06:05)
[2024-01-14] MEDS ORDERED: ACETAMINOPHEN TAB 650MG DOSE (2X325MG) PO PRN (06:05)
[2024-01-14] MEDS ORDERED: GLUCOSE 4GM CHEW TABLET PO PRN (06:05)
[2024-01-14] MEDS ORDERED: SYST1SOL4 OU (06:48)
[2024-01-14] MEDS ORDERED: PERCOCET PO (06:48)
[2024-01-14] MEDS ORDERED: TRUL0.5I SC (06:48)
[2024-01-14] MEDS ORDERED: HOME MED LIST COMPLETE! XX SCH (06:55)
[2024-01-14] MEDS: LEVOTHYROXINE 125MCG TABLET (0.125MG) PO SCH (08:22)
[2024-01-14] MEDS: OMEPRAZOLE 20MG CAP PO SCH (08:22)
[2024-01-14] MEDS: ASPIRIN 81MG CHEW TABLET PO SCH (08:22)
[2024-01-14] MEDS: predniSONE 5 MG TAB PO SCH (08:23)
[2024-01-14] MEDS: METOPROLOL SUCC (TopROL XL) 100MG *XL* TAB PO SCH (08:24)
[2024-01-14] MEDS: FOLIC ACID 1MG TAB PO SCH (08:24)
[2024-01-14] MEDS: HEPARIN SOD (PORCINE) 5000UNITS/ML 1ML VIAL/SYRINGE SC SCH (08:27)
[2024-01-14] MEDS: ARTIFICIAL TEARS DROPS 15ML BTL (VISINE DRY RELIEF) OU SCH (09:00)
[2024-01-14] MEDS: INSULIN LISPRO (NovoLOG) PER UNIT SC SCH ×2 (09:07→20:09)
[2024-01-14] MEDS: TACROLIMUS 0.5MG CAP PO SCH (09:08)
[2024-01-14 09:50] LABS: BASO % 0.2 % (0.0-1.0); EOS % 0.4 % (0.0-3.0); HEMATOCRIT 34.2 % (42.0-52.0); LYMPH # 0.8 10^3/uL (1.5-5.0); LYMPH % 7.6 % (24.0-44.0); MEAN CORPUSCULAR HEMOGLOBIN 27.2 pg (27.0-33.0); MEAN CORPUSCULAR HGB CONC 33.6 g/dl (32.0-36.5); MEAN CORPUSCULAR VOLUME 80.9 fl (80.0-96.0); MONO # 1.2 10^3/uL (0.0-0.8); MONO % 12.1 % (2.0-8.0); NEUTROPHILS % 79.3 % (36.0-66.0); PLATELET COUNT, AUTOMATED 149 10^3/uL (150-450); RED BLOOD COUNT 4.23 10^6/uL (4.30-6.10); WHITE BLOOD COUNT 10.1 10^3/uL (4.0-10.0)
[2024-01-14 09:54] LABS: HEMOGLOBIN 11.5 g/dl (13.5-17.5)
[2024-01-14] MEDS: MYCOPHENOLATE MOFETIL 250 MG CAP (J7517) PO SCH (10:05)
[2024-01-14 10:06] LABS: ALBUMIN 2.8 G/DL (3.2-5.2); ALKALINE PHOSPHATASE 68 U/L (46-116); ALT/SGPT 10 U/L (7.0-40); AST/SGOT 16 U/L (<34); BILIRUBIN,TOTAL 1.2 MG/DL (0.3-1.2); BLOOD UREA NITROGEN 23 MG/DL (9-23); CALCIUM LEVEL 8.5 MG/DL (8.3-10.6); CARBON DIOXIDE LEVEL 27 MMOL/L (20-31); CHLORIDE LEVEL 101 MMOL/L (98-107); CREATININE FOR GFR 0.95 MG/DL (0.70-1.30); GLOMERULAR FILTRATION RATE > 60.0 (>42); GLUCOSE, FASTING 215 MG/DL (74-106); SODIUM LEVEL 132 MMOL/L (136-145); TOTAL PROTEIN 5.4 G/DL (5.7-8.2)
[2024-01-14 10:10] LABS: ALBUMIN 2.9 G/DL (3.2-5.2); BLOOD UREA NITROGEN 23 MG/DL (9-23); CALCIUM LEVEL 8.6 MG/DL (8.3-10.6); CARBON DIOXIDE LEVEL 28 MMOL/L (20-31); CHLORIDE LEVEL 102 MMOL/L (98-107); CREATININE FOR GFR 0.99 MG/DL (0.70-1.30); GLOMERULAR FILTRATION RATE > 60.0 (>42); GLUCOSE, FASTING 206 MG/DL (74-106); MAGNESIUM LEVEL 1.6 MG/DL (1.8-2.4); PHOSPHORUS LEVEL 2.8 MG/DL (2.4-5.1); POTASSIUM SERUM 4.1 MMOL/L (3.5-5.1); SODIUM LEVEL 134 MMOL/L (136-145)
[2024-01-14 10:16] LABS: PROCALCITONIN 0.11 ng/ml
[2024-01-14 11:05] VITALS: BP 131/67; TEMP 98.1; O2SAT 94
[2024-01-14] MEDS: PERCOCET 5MG/325MG TAB PO PRN (11:11)
[2024-01-14] MEDS: MORPHINE 2 MG/ML 1ML VIAL IV PRN (13:15)
[2024-01-14] MEDS ORDERED: ARTIFICIAL TEARS DROPS 15ML BTL (VISINE DRY RELIEF) OU PRN (13:35)
[2024-01-14 14:00] VITALS: BP 126/66; TEMP 97.9; O2SAT 94
[2024-01-14 18:38] VITALS: O2SAT 90
[2024-01-14 19:54] VITALS: BP 127/63; TEMP 98.2; O2SAT 95
[2024-01-14] MEDS: K-PHOS ORIGINAL (POT.ACID PHOSPHATE) 500MG TAB PO SCH (21:41)
[2024-01-14] MEDS: ATORVASTATIN 20 MG TAB PO SCH (21:41)
[2024-01-15 06:00] VITALS: BP 140/74; TEMP 98.1; O2SAT 93
[2024-01-15 06:00] LABS: BASO % 0.1 % (0.0-1.0); EOS # 0.1 10^3/uL (0.0-0.5); EOS % 0.6 % (0.0-3.0); HEMATOCRIT 33.3 % (42.0-52.0); HEMOGLOBIN 11.4 g/dl (13.5-17.5); LYMPH # 0.8 10^3/uL (1.5-5.0); LYMPH % 8.8 % (24.0-44.0); MEAN CORPUSCULAR HEMOGLOBIN 27.3 pg (27.0-33.0); MEAN CORPUSCULAR HGB CONC 34.2 g/dl (32.0-36.5); MEAN CORPUSCULAR VOLUME 79.9 fl (80.0-96.0); MONO # 0.9 10^3/uL (0.0-0.8); MONO % 10.3 % (2.0-8.0); NEUTROPHILS # 7.1 10^3/uL (1.5-8.5); NEUTROPHILS % 79.6 % (36.0-66.0); PLATELET COUNT, AUTOMATED 144 10^3/uL (150-450); RED BLOOD COUNT 4.17 10^6/uL (4.30-6.10); WHITE BLOOD COUNT 8.9 10^3/uL (4.0-10.0)
[2024-01-15] MEDS: LevoFLOXacin IV 500 MG in IV 1 EA IV SCH (06:13)
[2024-01-15 06:18] VITALS: BP 134/73; TEMP 98.4; O2SAT 97
[2024-01-15 06:29] LABS: ALBUMIN 2.6 G/DL (3.2-5.2); BLOOD UREA NITROGEN 18 MG/DL (9-23); CALCIUM LEVEL 8.7 MG/DL (8.3-10.6); CARBON DIOXIDE LEVEL 26 MMOL/L (20-31); CHLORIDE LEVEL 101 MMOL/L (98-107); CREATININE FOR GFR 0.96 MG/DL (0.70-1.30); GLOMERULAR FILTRATION RATE > 60.0 (>42); GLUCOSE, FASTING 194 MG/DL (74-106); MAGNESIUM LEVEL 1.5 MG/DL (1.8-2.4); PHOSPHORUS LEVEL 3.1 MG/DL (2.4-5.1); POTASSIUM SERUM 4.1 MMOL/L (3.5-5.1); SODIUM LEVEL 133 MMOL/L (136-145)
[2024-01-15] MEDS: MAG SULF 1GM/100ML (MAG RUN) 1 GM in IV 1 EA IV ONE (08:49)
[2024-01-15] MEDS: MAGNESIUM GLUCONATE 500 MG TAB PO SCH (12:59)
[2024-01-15 14:00] VITALS: BP 130/69; TEMP 98.2; O2SAT 95
[2024-01-15 20:45] VITALS: BP 124/66; TEMP 98.2; O2SAT 95
[2024-01-16] MEDS: guaiFENesin DM LIQ 10ML UD PO PRN (02:00)
[2024-01-16 05:03] VITALS: BP 113/57; TEMP 98.1; O2SAT 93
[2024-01-16] MEDS: LevoFLOXacin 750 MG TABLET PO SCH (06:32)
[2024-01-16 06:42] LABS: BASO % 0.2 % (0.0-1.0); EOS # 0.1 10^3/uL (0.0-0.5); EOS % 1.4 % (0.0-3.0); HEMATOCRIT 32.7 % (42.0-52.0); HEMOGLOBIN 11.1 g/dl (13.5-17.5); LYMPH # 0.8 10^3/uL (1.5-5.0); LYMPH % 9.9 % (24.0-44.0); MEAN CORPUSCULAR HEMOGLOBIN 27.2 pg (27.0-33.0); MEAN CORPUSCULAR HGB CONC 33.9 g/dl (32.0-36.5); MEAN CORPUSCULAR VOLUME 80.1 fl (80.0-96.0); MONO # 0.8 10^3/uL (0.0-0.8); NEUTROPHILS # 6.7 10^3/uL (1.5-8.5); PLATELET COUNT, AUTOMATED 155 10^3/uL (150-450); RED BLOOD COUNT 4.08 10^6/uL (4.30-6.10); WHITE BLOOD COUNT 8.5 10^3/uL (4.0-10.0)
[2024-01-16 07:08] LABS: ALBUMIN 2.5 G/DL (3.2-5.2); BLOOD UREA NITROGEN 17 MG/DL (9-23); CALCIUM LEVEL 8.6 MG/DL (8.3-10.6); CARBON DIOXIDE LEVEL 28 MMOL/L (20-31); CHLORIDE LEVEL 102 MMOL/L (98-107); CREATININE FOR GFR 1.02 MG/DL (0.70-1.30); GLOMERULAR FILTRATION RATE > 60.0 (>42); GLUCOSE, FASTING 186 MG/DL (74-106); MAGNESIUM LEVEL 1.6 MG/DL (1.8-2.4); PHOSPHORUS LEVEL 3.2 MG/DL (2.4-5.1); POTASSIUM SERUM 3.9 MMOL/L (3.5-5.1); SODIUM LEVEL 135 MMOL/L (136-145)
[2024-01-16 09:03] VITALS: BP 125/68
[2024-01-16] MEDS: MAG SULF 1GM/100ML (MAG RUN) 1 GM in IV 1 EA IV ONE (09:04)
[2024-01-16] MEDS ORDERED: MAGN50TA PO (11:12)
[2024-01-16] MEDS ORDERED: LEVO1TAB40 PO (11:12)
== END 2024-01-16 12:48 | disposition home or self-care (01) | DRG 698 ==
LOC: M ED 22:14 → M ED INP 01-14 08:46 → M MSPAV 01-14 10:58
PROVIDERS: ADMIT Internal Medicine; ATTEND Internal Medicine
DX: T83.518A Infection and inflammatory reaction due to other urinary catheter, initial encounter (principal); A41.9 Sepsis, unspecified organism; N18.6 End stage renal disease; Z94.0 Kidney transplant status; D84.81 Immunodeficiency due to conditions classified elsewhere; J90 Pleural effusion, not elsewhere classified; Q61.3 Polycystic kidney, unspecified; I12.0 Hypertensive chronic kidney disease with stage 5 chronic kidney disease or end stage renal disease; N30.40 Irradiation cystitis without hematuria; E87.1 Hypo-osmolality and hyponatremia; J98.11 Atelectasis; N31.2 Flaccid neuropathic bladder, not elsewhere classified; E03.9 Hypothyroidism, unspecified; E11.22 Type 2 diabetes mellitus with diabetic chronic kidney disease; I25.10 Atherosclerotic heart disease of native coronary artery without angina pectoris; E78.5 Hyperlipidemia, unspecified; K21.9 Gastro-esophageal reflux disease without esophagitis; I70.1 Atherosclerosis of renal artery; Z90.49 Acquired absence of other specified parts of digestive tract; Z85.46 Personal history of malignant neoplasm of prostate; Z92.3 Personal history of irradiation; Z79.890 Hormone replacement therapy; Z86.718 Personal history of other venous thrombosis and embolism; Z79.84 Long term (current) use of oral hypoglycemic drugs; Z79.82 Long term (current) use of aspirin; Z79.52 Long term (current) use of systemic steroids; Z79.899 Other long term (current) drug therapy; Z88.0 Allergy status to penicillin; Z88.1 Allergy status to other antibiotic agents; Z11.52 Encounter for screening for COVID-19

== ENCOUNTER → 2024-02-26 | Outpatient (REF) | payer MEDICARE, BC, OTHER ==
[~2024-02-26] MED LIST changes: +LEVO1TAB40 PO; +METO200T15 PO; -METO200T28 PO; +PERCOCET PO; +SYST1SOL4 OU; +TRUL0.5I SC
== END ==
LOC: M LAB REF 17:25
PROVIDERS: ATTEND Internal Medicine Nephrology
DX: Z94.0 Kidney transplant status (principal)

== ENCOUNTER → 2024-03-06 | Outpatient (CLI) | payer MEDICARE, BC | LOC: M RAD 13:14 | PROVIDERS: ATTEND Internal Medicine | DX: J90 Pleural effusion, not elsewhere classified (principal); S27.321A Contusion of lung, unilateral, initial encounter; Y93.9 Activity, unspecified; Y92.9 Unspecified place or not applicable ==

== ENCOUNTER 2024-03-07 03:30 | Emergency (ER) | payer MEDICARE, BC ==
[~2024-03-07] VITALS: Ht 176.5 cm; Wt 80.4 kg
[2024-03-07] MEDS: NS 1,000 ML IV ONE (08:32)
[2024-03-07 08:49] LABS: BASO % 0.3 % (0.0-1.0); EOS # 0.2 10^3/uL (0.0-0.5); EOS % 1.7 % (0.0-3.0); HEMATOCRIT 44.9 % (42.0-52.0); HEMOGLOBIN 15.2 g/dl (13.5-17.5); LYMPH # 1.2 10^3/uL (1.5-5.0); LYMPH % 13.4 % (24.0-44.0); MEAN CORPUSCULAR HEMOGLOBIN 27.4 pg (27.0-33.0); MEAN CORPUSCULAR HGB CONC 33.9 g/dl (32.0-36.5); MEAN CORPUSCULAR VOLUME 80.9 fl (80.0-96.0); MONO # 0.7 10^3/uL (0.0-0.8); MONO % 7.2 % (2.0-8.0); NEUTROPHILS # 7.1 10^3/uL (1.5-8.5); PLATELET COUNT, AUTOMATED 204 10^3/uL (150-450); RED BLOOD COUNT 5.55 10^6/uL (4.30-6.10); WHITE BLOOD COUNT 9.2 10^3/uL (4.0-10.0)
[2024-03-07 09:34] LABS: BLOOD UREA NITROGEN 23 MG/DL (9-23); CALCIUM LEVEL 9.7 MG/DL (8.3-10.6); CARBON DIOXIDE LEVEL 28 MMOL/L (20-31); CHLORIDE LEVEL 103 MMOL/L (98-107); CREATININE FOR GFR 0.92 MG/DL (0.70-1.30); GLOMERULAR FILTRATION RATE > 60.0 (>42); GLUCOSE, FASTING 177 MG/DL (74-106); POTASSIUM SERUM 3.9 MMOL/L (3.5-5.1); SODIUM LEVEL 139 MMOL/L (136-145)
[2024-03-07] MEDS: BACTRIM 160MG/800MG DS TAB PO ONE (10:06)
[2024-03-07 10:10] VITALS: BP 150/80; TEMP 96.3; O2SAT 98
== END 2024-03-07 10:13 | disposition home or self-care (01) ==
LOC: M ED 03:30
DX: N39.0 Urinary tract infection, site not specified (principal); E11.9 Type 2 diabetes mellitus without complications; I10 Essential (primary) hypertension; E78.5 Hyperlipidemia, unspecified; Z88.0 Allergy status to penicillin; Z88.8 Allergy status to other drugs, medicaments and biological substances; Z79.899 Other long term (current) drug therapy; Z79.1 Long term (current) use of non-steroidal anti-inflammatories (NSAID); Z79.4 Long term (current) use of insulin; Z79.84 Long term (current) use of oral hypoglycemic drugs; Z79.52 Long term (current) use of systemic steroids

== ENCOUNTER → 2024-06-30 | Outpatient (REF) | payer MEDICARE, OTHER | LOC: M LAB REF 17:20 | PROVIDERS: ATTEND Internal Medicine Nephrology | DX: Z94.0 Kidney transplant status (principal) ==

== ENCOUNTER → 2024-07-30 | Outpatient (REF) | payer MEDICARE, OTHER | LOC: M LAB REF 17:50 | PROVIDERS: ATTEND Internal Medicine Nephrology | DX: Z94.0 Kidney transplant status (principal) ==

== ENCOUNTER → 2024-10-30 | Outpatient (CLI) | payer MEDICARE, BC | LOC: M RAD 13:49 | PROVIDERS: ATTEND Internal Medicine | DX: I70.203 Unspecified atherosclerosis of native arteries of extremities, bilateral legs (principal) ==

== ENCOUNTER → 2025-06-01 | Outpatient (REF) | payer MEDICARE, BC ==
[~2025-06-01] MED LIST changes: +GLIP-318 PO; -GLIP5TAB20 PO; -KETO0.5S4; +KETO5DRO32; -PRAV10TA3 PO; +PRAV10TA43 PO
== END ==
LOC: M LAB REF 16:56
PROVIDERS: ATTEND Internal Medicine Nephrology
DX: Z94.0 Kidney transplant status (principal)

== ENCOUNTER 2025-07-27 19:34 | Emergency (ER) | payer MEDICARE, BC ==
[~2025-07-27] VITALS: Ht 175.3 cm; Wt 74.1 kg
[2025-07-27 20:51] LABS: BASO % 0.3 % (0.0-1.0); EOS # 0.1 10^3/uL (0.0-0.5); EOS % 1.2 % (0.0-3.0); LYMPH # 0.6 10^3/uL (1.5-5.0); LYMPH % 5.6 % (24.0-44.0); MONO # 1.0 10^3/uL (0.0-0.8); MONO % 9.0 % (2.0-8.0); NEUTROPHILS # 8.9 10^3/uL (1.5-8.5); NEUTROPHILS % 83.5 % (36.0-66.0); PLATELET COUNT, AUTOMATED 169 10^3/uL (150-450)
[2025-07-27 20:52] LABS: BASO # 0.0 10^3/uL (0.0-0.2)
[2025-07-27 21:04] LABS: INR 0.88
[2025-07-27 21:24] LABS: ALT/SGPT 16.0 U/L (7.0-40); AST/SGOT 13.0 U/L (<34); CALCIUM LEVEL 9.4 MG/DL (8.3-10.6); CARBON DIOXIDE LEVEL 27.0 MMOL/L (20-31); CHLORIDE LEVEL 100.0 MMOL/L (98-107); CREATININE FOR GFR 1.06 MG/DL (0.70-1.30); GLOMERULAR FILTRATION RATE 73.6 (>42); POTASSIUM SERUM 4.0 MMOL/L (3.5-5.1); SODIUM LEVEL 134.0 MMOL/L (136-145)
[2025-07-27 22:00] VITALS: BP 163/76
[2025-07-27 22:04] VITALS: TEMP 98.1; O2SAT 95
[2025-07-27] MEDS ORDERED: COLA100C5 PO (22:12)
[2025-07-27] MEDS: MAGNESIUM CITRATE 300 ML BTL PO ONE (22:18)
== END 2025-07-27 22:42 | disposition home or self-care (01) ==
LOC: M ED 19:34
DX: K59.00 Constipation, unspecified (principal); N18.6 End stage renal disease; Z87.19 Personal history of other diseases of the digestive system; Z87.440 Personal history of urinary (tract) infections; Z86.718 Personal history of other venous thrombosis and embolism; Z94.0 Kidney transplant status; Z79.4 Long term (current) use of insulin; Z79.82 Long term (current) use of aspirin; Z79.899 Other long term (current) drug therapy; Z88.0 Allergy status to penicillin; Z88.1 Allergy status to other antibiotic agents

== ENCOUNTER → 2025-09-30 | Outpatient (CLI) | payer MEDICARE, BC ==
[~2025-09-30] MED LIST changes: -BACTDSTA PO; +COLA100C5 PO; +SULF-8 PO
[2025-09-30 14:45] LABS: APPEARANCE, URINE HAZY (CLEAR); BACTERIA, URINE AUTO 2+ (NEGATIVE); BILIRUBIN, URINE AUTO NEGATIVE (NEGATIVE); BLOOD, URINE BLOOD 1+ (NEGATIVE); GLUCOSE, URINE (UA) AUTO 2+ mg/dL (NEGATIVE); KETONE, URINE AUTO NEGATIVE (NEGATIVE); LEUKOCYTE ESTERASE, URINE AUTO 3+ (NEGATIVE); MUCUS, URINE SMALL (NEGATIVE); NITRITE, URINE AUTO POSITIVE (NEGATIVE); PROTEIN, URINE AUTO 2+ mg/dL (NEGATIVE); RBC, URINE AUTO 2 /HPF (0-3); SPECIFIC GRAVITY URINE AUTO 1.016 (1.002-1.035); SQUAMOUS EPITHELIAL CELL UR AU 0 /HPF (0-6); UROBILINOGEN, URINE AUTO 0.2 mg/dL (0.0-2.0); WBC, URINE AUTO 130 /HPF (0-3)
== END ==
LOC: M LAB 13:59
PROVIDERS: ATTEND Student in an Organized Health Care Education/Training Program
DX: R33.9 Retention of urine, unspecified (principal)

== ENCOUNTER → 2025-10-07 | Outpatient (REF) | payer MEDICARE, BC | LOC: M LAB REF 16:56 | PROVIDERS: ATTEND Internal Medicine Nephrology | DX: Z94.0 Kidney transplant status (principal) ==